=== PATIENT | female | born 1960 | race Caucasian/White ===

== ENCOUNTER 2021-06-10 06:15 | Outpatient (REF) | payer BC, OTHER, SELFPAY ==
[2021-06-10 12:12] LABS: Alanine Aminotransferase 20 U/L (0-31); Anion Gap 13 (12-20); Aspartate Amino Transferase 20 U/L (5-31); Blood Urea Nitrogen 14 mg/dL (9-16); Calcium 9.1 mg/dL (8.4-10.2); Carbon Dioxide 27 mmol/L (22-29); Chloride 106 mmol/L (96-108); Cholesterol 181 mg/dL; Estimated Glomerular Filt Rate > 60; Glucose Fasting 86 mg/dL (60-99); HDL Cholesterol 45 mg/dL; LDL Cholesterol Calculated 113 mg/dl; Sodium 142 mmol/L (135-145); Triglycerides 117 mg/dL
[2021-06-10 12:15] LABS: Vitamin D 25-OH Total 41.8 ng/mL (>30)
== END 2021-06-10 06:16 | disposition home or self-care (01) ==
LOC: HO.HMGCLDS 06:15
PROVIDERS: PCP Internal Medicine; Visit Provider Internal Medicine
DX: Z00.00 Encounter for general adult medical examination without abnormal findings (principal); E66.9 Obesity, unspecified; I10 Essential (primary) hypertension; E78.5 Hyperlipidemia, unspecified; Z78.0 Asymptomatic menopausal state
CPT/HCPCS: 36415; 80048; 80061; 82306; 84450; 84460

== ENCOUNTER → 2021-06-15 15:46 | Outpatient (BNVA) | payer BC, OTHER, SELFPAY | PROVIDERS: Referring Provider Internal Medicine; Visit Provider Nurse Practitioner Family ==

== ENCOUNTER 2021-08-05 09:06 | Day surgery (SDC) | payer BC, OTHER, SELFPAY ==
--- NOTE | 2021-08-04 09:03 | HO.ANESPROP2 ---
Documented by User: Madison Go NP 08/04/21 09:04 HPI - Anesthesia Eval Consult details Narrative: 61yo F for Colonoscopy PMFSH Active Problems Active Problems: All Active Problems (Updated 04/15/21 @ 10:44 by Annika More MD) Colon cancer screening (Acute) Dyslipidemia (Acute) Essential hypertension (Acute) Adult general medical exam (Acute) Obesity (BMI 30.0-34.9) (Acute) Past Medical History Medical History Adult general medical exam Colon cancer screening Dyslipidemia Essential hypertension Obesity (BMI 30.0-34.9) Surgical History Surgical History Hx of section Hx of colonoscopy Social History Social History Housing: House Alcohol intake: current Patient Tobacco Use Status: Never used Tobacco e-Cigarette/Vaping Use: Never Used Second Hand Smoke Exposure: No service: No Current occupational status: employed Meds Allergies Allergy/AdvReac Type Severity Reaction Status Date / Time bees Allergy Severe severe Uncoded 08/01/21 14:16 pain and swelling over bite (yellow Jacket) Home Medications Medication Instructions Recorded Confirmed Last Taken Type amlodipine 5 mg tablet 5 mg PO DAILY 04/15/21 08/01/21 Unknown History Exam Exam Date and Time: August 04, 2021 09 Pertinent Lab Results Pertinent Lab Results: Laboratory Tests 11/25/18 06/10/21 11:35 06:21 WBC 7.2 Hgb 12.8 Hct 38.3 Plt Count 277 Sodium 142 Potassium 4.0 Chloride 106 Carbon Dioxide 27 BUN 14 Creatinine 0.81 Assessment and Plan Assessment Anesthesia Assessment: Chart Reviewed Documented by User: Tila Fuchs MD 08/05/21 08:58 PMFSH Past Medical History Medical History Adult general medical exam Colon cancer screening Dyslipidemia Essential hypertension Obesity (BMI 30.0-34.9) Family History Family history of problems with anesthesia: No Surgical History Surgical History Hx of section Hx of colonoscopy History of Problems with Anesthesia: No Social History Social History Housing: House Alcohol intake: current Patient Tobacco Use Status: Never used Tobacco e-Cigarette/Vaping Use: Never Used Second Hand Smoke Exposure: No service: No Current occupational status: employed Meds Allergies Allergy/AdvReac Type Severity Reaction Status Date / Time bees Allergy Severe severe Uncoded 08/01/21 14:16 pain and swelling over bite (yellow Jacket) Home Medications Medication Instructions Recorded Confirmed Last Taken Type amlodipine 5 mg tablet 5 mg PO DAILY 04/15/21 08/01/21 Unknown History Exam Airway Mallampati Class: II TM Dist: >3cm Neck ROM: Full Assessment and Plan Assessment Anesthesia Assessment: Anesthesia Plan Discussed Final Anesthetic Review Family History of Problems with Anesthesia: No History of Problems with Anesthesia: No NPO: Yes ASA Class: II Final Preanesthetic Review: No Changes in Pt Med Stat, Meds/Allgs Chart Reviewed, Consent Obtained/Reviewed and Anes Risks/Benef Reviewed Patient Risk: Low Procedure Risk: Intermediate Assessment/Block/Sedation in SS: Assess/Block/Sedation-SS Anesthetic Plan Anesthetic Plan: MAC: Disposition: Standard PACU
[2021-08-05 09:14] VITALS: BMI 33.6
[2021-08-05 09:24] VITALS: BP 161/103; PULSE 85; RESP 18; TEMP 37.1; O2SAT 99
--- NOTE | 2021-08-05 09:35 | MHC.SHP ---
Pre-Procedural Eval Section A Date of Service: 08/05/21 Section B Chief Complaint: Screening Details of Present Illness: Colon cancer screening Relevant Family History (Specify if Yes): No Relevant Social History: None Present Medications: see Short Stay Collaborative assessment Medical History: Significant History (Adult general medical exam Colon cancer screening Dyslipidemia Essential hypertension Obesity (BMI 30.0-34.9)) Allergies: Allergies Allergy/AdvReac Type Severity Reaction Status Date / Time bees Allergy Severe severe Uncoded 08/01/21 14:16 pain and swelling over bite (yellow Jacket) Review of Systems Sugical H&P ROS: Negative: Constitution, Cardiovascular, Respiratory and Gastrointestinal Exam Surgical H&P Exam: Normal: Heart, Normal: Lungs and Normal: Extremities Plan Diagnosis/Plan: Unchanged I have reviewed the history and physical and performed a pertinent physical examination on my patient. No changes have occurred unless specified.
[2021-08-05] MEDS: Lactated Ringers 1,000 ML 100 ML IVCONT (09:44)
--- NOTE | 2021-08-05 09:48 | PM.OP ---
Brief Operative Note Date of Service: 08/05/21 Pre-op diagnosis: Colon cancer screening Post-op diagnosis: other (Colon polyp, diverticulosis, hemorrhoids) Procedure: COLONOSCOPY TILL CECUM WITH BIOPSIES Consent: Indications for the procedure and potential complications of bleeding, perforation, reaction to medications and missed diagnosis were discussed with the patient and informed consent was obtained. Instrument: Olympus PCF H 190 L variable stiffness pediatric colonoscope Monitoring: Vital signs and clinical assessment, intermittent blood pressure monitoring, continuous EKG monitoring, Pulse oximetry and Carbon Dioxide monitoring were done throughout the procedure. Colon withdrawl time was 15 minutes. Procedure: The patient was placed in the left lateral decubitis position and pre-procedure medications were administered. After a digital rectal examination of the ano-rectum, the video colonoscope was inserted into the rectum and advanced through the colon to the cecum. The colonoscope was slowly withdrawn in a retrograde panoramic fashion and the colon mucosa was carefully examined including a retroflexed view of the rectum. Findings and interventions are described below. Procedure Difficulty: Without difficulty Findings: Terminal Ileum: Not evaluated Cecum: Normal Ascending Colon: Normal Transverse Colon: A 6-7 mm sessile polyp removed with a cold bx. Descending Colon: Normal Sigmoid Colon: Moderate diverticulosis Rectum: Normal Ano-rectum: Moderate internal hemorrhoids Colon preparation: Good after some irrigation Impression and Post Procedure Diagnosis: Colonoscopy Findings: One small polyp removed Moderate diverticulosis seen in the sigmoid colon Moderate hemorrhoids on retroflexed exam. Plan: Await pathology results Patient has an appointment on 08/19/21 in the [facility] with Penny Mccloud FNP-BC . Repeat Colonoscopy interval based on path results - in 5 years if polyps are adenomatous and 10 years if polyps are hyperplastic. Above findings were reviewed with the patient and colon polyps and diverticulosis handouts were given in the discharge area Surgeon: Corey Madrigal MD Anesthesia: MAC (Castro Drake CRNA) Was an Tying Machine Operator Lumber used for this Procedure?: Yes Tying Machine Operator Lumber: Earle Sheehan Estimated blood loss (mL): 0 Pathology: other (A- TRANSVERSE COLON POLYP) Condition: stable Disposition: PACU
--- NOTE | 2021-08-05 10:17 | P.OP_ITS ---
Operative Note Operative Note Date of Service: 08/05/21 Narrative: Pre-op diagnosis:?Colon cancer screening Post-op diagnosis:?other (Colon polyp, diverticulosis, hemorrhoids) Procedure:? COLONOSCOPY TILL CECUM WITH BIOPSIES Consent: Indications for the procedure and potential complications of bleeding, perforation, reaction to medications and missed diagnosis were discussed with the patient and informed consent was obtained. Instrument: Olympus PCF H 190 L variable stiffness pediatric colonoscope Monitoring: Vital signs and clinical assessment, intermittent blood pressure monitoring, continuous EKG monitoring, Pulse oximetry and Carbon Dioxide monitoring were done throughout the procedure. Colon withdrawl time was 15 minutes. Procedure: The patient was placed in the left lateral decubitis position and pre-procedure medications were administered. After a digital rectal examination of the ano-rectum, the video colonoscope was inserted into the rectum and advanced through the colon to the cecum. The colonoscope was slowly withdrawn in a retrograde panoramic fashion and the colon mucosa was carefully examined including a retroflexed view of the rectum. Findings and interventions are described below. Procedure Difficulty: Without difficulty Findings: Terminal Ileum: Not evaluated Cecum:? Normal Ascending Colon:? Normal Transverse Colon:? A 6-7 mm sessile polyp removed with a cold bx. Descending Colon:? Normal Sigmoid Colon:? Moderate diverticulosis Rectum:? Normal Ano-rectum:? Moderate internal hemorrhoids Colon preparation:? Good after some irrigation Impression and Post Procedure Diagnosis: Colonoscopy Findings: One small polyp removed Moderate diverticulosis seen in the sigmoid colon Moderate hemorrhoids on retroflexed exam. Plan: Await pathology results Patient has an appointment on 08/19/21 in the GI Clinic with ? Penny Mccloud, [facility] . Repeat Colonoscopy interval based on path results - in 5 years if polyps are adenomatous and 10 years if polyps are hyperplastic. Above findings were reviewed with the patient and colon polyps and diverticulosis handouts were given in the discharge area Surgeon:?Corey Madrigal MD Anesthesia:?MAC (Castro Drake CRNA) Was an Utilities Equipment Repairer used for this Procedure?:?Yes Utilities Equipment Repairer:?Earle Sheehan Estimated blood loss (mL):?0 Pathology:?other (A- TRANSVERSE COLON POLYP) Condition:?stable Disposition:?PACU
[2021-08-05 10:20] VITALS: BP 123/75; PULSE 74; RESP 17; TEMP 36.3; O2SAT 99
[2021-08-05 10:35] VITALS: BP 132/91; PULSE 65; RESP 18; TEMP 36.3; O2SAT 99
== END 2021-08-05 11:01 | disposition home or self-care (01) ==
PROVIDERS: PCP Internal Medicine; Visit Provider Internal Medicine Gastroenterology
PROC: 0DJD8ZZ Inspection of Lower Intestinal Tract, Via Natural or Artificial Opening Endoscopic (ICD-10-PCS; CPT 45378; principal; 2021-08-05 10:00)
DX: Z12.11 Encounter for screening for malignant neoplasm of colon (principal); K63.5 Polyp of colon; K57.30 Diverticulosis of large intestine without perforation or abscess without bleeding; K64.8 Other hemorrhoids; I10 Essential (primary) hypertension; E78.5 Hyperlipidemia, unspecified
CPT/HCPCS: 45380; 88305

== ENCOUNTER → 2021-08-19 08:59 | Outpatient (BNVA) | payer BC, OTHER, SELFPAY | PROVIDERS: PCP Internal Medicine; Referring Provider Internal Medicine; Visit Provider Nurse Practitioner Family ==

== ENCOUNTER 2022-04-21 10:10 | Outpatient (REF) | payer BC, OTHER, SELFPAY ==
[2022-04-21 11:12] LABS: MANUAL DIFF FLAG NO
[2022-04-21 11:19] LABS: Basophils Percent Auto 0.3 % (0-2); Eosinophils Absolute Auto 0.1 X10*3/uL (0.0-0.4); Eosinophils Percent Auto 1.4 % (0-4); Hemoglobin 13.1 g/dl (12.0-16.0); Imm Gran Abs Auto 0.03 X10*3/uL (0.00-0.03); Imm Gran Pct Auto 0.4 % (0.0-0.4); Lymphocytes Absolute Auto 3.7 X10*3/uL (1.2-4.9); Lymphocytes Percent Auto 46.7 % (20-40); Mean Corpuscular Hemoglobin 26.8 pg (27.0-33.0); Mean Corpuscular Volume 83.8 fL (80.0-98.0); Mean Platelet Volume 9.5 fL (9.4-12.3); Monocytes Absolute Auto 0.6 X10*3/uL (0.1-1.2); Neutrophils Absolute Auto 3.5 x10*3/uL (2.0-8.3); Neutrophils Percent Auto 43.2 % (45-73); Platelet Count 325 X10*3/uL (160-400); Red Blood Count 4.89 X10*6/uL (4.20-5.50); Red Cell Distribution Width 14.8 % (11.0-16.0)
[2022-04-21 11:50] LABS: Alanine Aminotransferase 29 U/L (0-31); Anion Gap 14 (12-20); Aspartate Amino Transferase 24 U/L (5-31); Blood Urea Nitrogen 15 mg/dL (9-16); Calcium 9.3 mg/dL (8.4-10.2); Carbon Dioxide 26 mmol/L (22-29); Chloride 105 mmol/L (96-108); Cholesterol 212 mg/dL; Estimated Glomerular Filt Rate > 60; Glucose Fasting 96 mg/dL (60-99); HDL Cholesterol 50 mg/dL; LDL Cholesterol Calculated 143 mg/dl; Potassium 4.2 mmol/L (3.3-5.1); Sodium 141 mmol/L (135-145); Triglycerides 95 mg/dL
[2022-04-21 12:01] LABS: Vitamin D 25-OH Total 35.7 ng/mL (>30)
== END 2022-04-21 10:11 | disposition home or self-care (01) ==
LOC: HO.HMGCLDS 10:10
PROVIDERS: Visit Provider Internal Medicine
DX: Z00.00 Encounter for general adult medical examination without abnormal findings (principal); I10 Essential (primary) hypertension; E66.9 Obesity, unspecified; E78.5 Hyperlipidemia, unspecified; N95.9 Unspecified menopausal and perimenopausal disorder
CPT/HCPCS: 36415; 80048; 80061; 82306; 84450; 84460; 85025

== ENCOUNTER 2022-05-26 09:53 | Outpatient (REF) | payer BC, OTHER, SELFPAY ==
[2022-05-26 12:10] LABS: Alanine Aminotransferase 17 U/L (0-31); Albumin Level 4.5 g/dL (3.5-5.0); Alkaline Phosphatase 93 U/L (39-117); Anion Gap 14 (12-20); Aspartate Amino Transferase 19 U/L (5-31); Bilirubin Total 0.5 mg/dL (0.0-1.0); Blood Urea Nitrogen 14 mg/dL (9-16); Calcium 9.3 mg/dL (8.4-10.2); Carbon Dioxide 27 mmol/L (22-29); Chloride 104 mmol/L (96-108); Estimated Glomerular Filt Rate > 60; Glucose Random 97 mg/dL (60-115); Potassium 4.4 mmol/L (3.3-5.1); Sodium 141 mmol/L (135-145); Total Protein 8.1 g/dL (6.5-8.0)
[2022-05-26 13:59] LABS: Creatinine Urine 211.42 mg/dL; Protein/Creatinine Ratio, Ur 0.09 (<0.2); Total Protein Urine Random 19 mg/dL (<12)
== END 2022-05-26 09:54 | disposition home or self-care (01) ==
LOC: HO.HMGCLDS 09:53
PROVIDERS: PCP Internal Medicine; Visit Provider Internal Medicine Hypertension Specialist
DX: I10 Essential (primary) hypertension (principal)
CPT/HCPCS: 36415; 80053; 84156

== ENCOUNTER 2023-04-13 12:43 | Outpatient (REF) | payer BC, SELFPAY ==
[2023-04-13 14:11] LABS: Appearance Urine Cloudy; Color Urine Yellow; Glucose Urine UA Negative (Negative); Leukocyte Esterase Urine Large (3+) (Negative); Nitrite Urine Negative (Negative); Specific Gravity - Urine 1.025 (1.005-1.025); UMIC TRIGGER UA YES; Urine Blood Moderate (2+) (Negative); Urine Ketones Trace mg/dL (Negative); Urine Protein Trace mg/dL (Neg-Trace)
[2023-04-13 14:17] LABS: Bacteria Urine 1+ (None Seen); Hyaline Casts Urine 0-2 /LPF (0-2); RBC Urine >20 /HPF (0-2); WBC Urine >50 /HPF (0-5)
[2023-04-13 16:01] LABS: Anion Gap 12 (12-20); Blood Urea Nitrogen 12 mg/dL (9-16); Carbon Dioxide 28 mmol/L (22-29); Chloride 104 mmol/L (96-108); Estimated Glomerular Filt Rate > 60; Potassium 3.7 mmol/L (3.3-5.1); Sodium 140 mmol/L (135-145)
== END 2023-04-13 12:44 | disposition home or self-care (01) ==
LOC: HO.HMGCLDS 12:43
PROVIDERS: PCP Internal Medicine; Visit Provider Internal Medicine Hypertension Specialist
DX: I10 Essential (primary) hypertension (principal)
CPT/HCPCS: 36415; 80051; 81001; 82310; 82565; 84520

== ENCOUNTER 2023-04-20 09:07 | Outpatient (REF) | payer BC, SELFPAY | END 2023-04-20 09:08 | disposition home or self-care (01) | LOC: HO.LAB 09:07 | PROVIDERS: Visit Provider Internal Medicine | DX: Z13.89 Encounter for screening for other disorder (principal) ==

== ENCOUNTER 2023-04-20 09:17 | Outpatient (REF) | payer BC, SELFPAY ==
[2023-04-20 11:34] LABS: Urine Cytology See Pathology rpt
[2023-04-20 11:43] LABS: Appearance Urine Clear; Color Urine Yellow; Glucose Urine UA Negative (Negative); Leukocyte Esterase Urine Small (1+) (Negative); Nitrite Urine Negative (Negative); PH 5.5 (5.0-9.0); UMIC TRIGGER UACC YES; Urine Blood Trace (Negative); Urine Ketones Negative (Negative); Urine Protein Negative (Neg-Trace)
[2023-04-20 11:47] LABS: Bacteria Urine None Seen (None Seen); Hyaline Casts Urine 0-2 /LPF (0-2); Squamous Epithelial Cell Urine 0-2 /HPF (0-2); UACC Culture Trigger YES
[2023-04-20 12:34] LABS: Cholesterol 186 mg/dL; Glucose Fasting 108 mg/dL (60-99); HDL Cholesterol 47 mg/dL; LDL Cholesterol Calculated 118 mg/dl; Triglycerides 105 mg/dL
== END 2023-04-20 09:18 | disposition home or self-care (01) ==
LOC: HO.HMGCLDS 09:17
PROVIDERS: PCP Internal Medicine; Visit Provider Internal Medicine
DX: Z00.01 Encounter for general adult medical examination with abnormal findings (principal); I10 Essential (primary) hypertension; R31.29 Other microscopic hematuria; E78.5 Hyperlipidemia, unspecified
CPT/HCPCS: 36415; 80061; 81001; 82947; 87086; 88112

== ENCOUNTER 2023-08-14 10:19 | Outpatient (AMB) | payer BC, SELFPAY ==
[2023-08-14 11:11] VITALS: BP 136/80; PULSE 104; O2SAT 97; BMI 34.8
--- NOTE | 2023-08-14 11:11 | MHC.PC.OV ---
Vital Signs 08/14/23 11:11 Height 5 ft 3 in Weight 196 lb 4 oz BMI 34.8 BP 136/80 Blood Pressure Location Lt brachial Position Sitting Pulse 104 H Pulse Source Pulse Oximeter Pulse Oximetry (%) 97 Oxygen Delivery Method Room Air Intake Visit Reasons: ? kidney stone, left flank pain Intake Note: pt is here for left flank pain that comes and goes denies any pain with urination and she does not have any pain right now no blood in the urine pt does frequency and urgency but she has been drinking 96 oz water a day Allergies bees Allergy (Severe, Uncoded 08/14/23 14:51) severe pain and swelling over bite (yellow Jacket) Medication List - Last Reconciled 08/14/23 by Annika More MD amlodipine 5 mg PO DAILY lactobacillus combo no.11 (Probiotic) 1 cap PO DAILY multivitamin 1 tab PO DAILY spironolactone 25 mg PO DAILY Tobacco use date assessed: 04/20/23 HPI ? kidney stone, left flank pain HPI Details 63-year-old lady here today complaining of intermittent episode of sharp stabbing pain in left lower abdomen and flank, which started approximately a week ago comes and goes, improved a little bit after drinking plenty of water at least 16 oz every 4 hours. Denies any urinary symptoms. Has history of left kidney stone in the past status post lithotripsy in 2012 [facility] Medical History History of nephrolithiasis Right shoulder pain Annual visit for general adult medical examination with abnormal findings Microhematuria Dyslipidemia Essential hypertension Surgical History Hx of section Hx of colonoscopy Social History Housing: House Alcohol intake: current Patient Tobacco Use Status: Never used Tobacco e-Cigarette/Vaping Use: Never Used Second Hand Smoke Exposure: No service: No Current occupational status: employed Cognitive needs: No Hearing needs: No Vision needs: Yes Questionnaire Thrive Questionnaire Date Thrive assessed: 04/20/23 PRATIK-7 AMB Questionnaire PRATIK-7 Date PRATIK - 7 assessed: 04/20/23 Source: Developed by Drs. Augie Estrada, Joanne Bustamante, Reji Monzon and colleagues, with an educational zonia from [employer]. Review of Systems Const All systems reviewed & are unremarkable except as noted in HPI and below Physical exam (Primary Care) Vital Signs: Last Vital Signs Pulse 104 H 08/14/23 11:11 BP 136/80 08/14/23 11:11 Pulse Ox 97 08/14/23 11:11 Oxygen Delivery Method Room Air 08/14/23 11:11 BMI result Body Mass Index 34.8 Tobacco/Smoking Status: Tobacco use Status Tobacco use date assessed 04/20/23 08/14/23 11:12 Patient Tobacco Use Status Never used Tobacco 08/14/23 11:12 e-Cigarette/Vaping Use Never Used 08/14/23 11:12 Thrive Assessment: Date of Thrive Assessment Date Thrive assessed 04/20/23 08/14/23 11:12 Const Other: Alert oriented x3, no acute distress noted ambulatory normal gait GI Palpation (GI): Soft to palpation, nontender, no guarding and no masses General: Yes no CVA tenderness Back/Spine/Pelvis Back: no CVA tenderness Results AMB Urinalysis, Automated UA Leukoctes 0 Sola/uL Last Edit by Farzana Hollis CMA on 08/14/23 11:21 UA Nitrite Negative Last Edit by Farzana Hollis CMA on 08/14/23 11:21 UA Urobilinogen 0.2 mg/dL Last Edit by Farzana Hollis CMA on 08/14/23 11:21 UA Protein 0 mg/dL Last Edit by Farzana Hollis CMA on 08/14/23 11:21 UA pH 6.0 Last Edit by Farzana Hollis CMA on 08/14/23 11:21 UA Blood 80 Demond/uL Last Edit by Farzana Hollis CMA on 08/14/23 11:21 UA Specific [place] 1.010 Last Edit by Farzana Hollis CMA on 08/14/23 11:21 UA Ketone Negative Last Edit by Farzana Hollis CMA on 08/14/23 11:21 UA Bilirubin 0 mg/dL Last Edit by Farzana Hollis CMA on 08/14/23 11:21 UA Glucose 0 mg/dL Last Edit by Farzana Hollis CMA on 08/14/23 11:21 Results Reviewed Results Reviewed: Laboratory Last Values Urine pH (Auto) 6.0 08/14/23 11:18 Specific [place] (Auto) 1.010 08/14/23 11:18 Urine Protein (Auto) 0 mg/dL 08/14/23 11:18 Glucose (UA)(Auto) 0 mg/dL 08/14/23 11:18 Urine Ketones (Auto) Negative 08/14/23 11:18 Urine Blood (Auto) 80 Demond/uL 08/14/23 11:18 Urine Nitrite (Auto) Negative 08/14/23 11:18 Urine Bilirubin (Auto) 0 mg/dL 08/14/23 11:18 Urine Urobilinogen (Auto) 0.2 mg/dL 08/14/23 11:18 Leukocyte Esterase (Auto) 0 Sola/uL 08/14/23 11:18 Assessment and Plan Assessment & Plan (1) Acute left flank pain: Code(s): R10.9 - Unspecified abdominal pain Plan: Urinalysis showed presence of microscopic hematuria, no evidence of UTI. Ordered the left renal ultrasound. Likely kidney stone Orders: Orders AMB Urinalysis Automated Today Z13.9 - Encounter for screening, unspecified US renal LT Today R10.9 - Unspecified abdominal pain, Z87.442 - Personal history of urinary calculi Coding Level of Care Code Est Pt Level 3 (95257) Diagnoses Acute left flank pain R10.9
== END 2023-08-14 11:55 | disposition home or self-care (01) ==
PROVIDERS: PCP Internal Medicine; Visit Provider Internal Medicine
DX: Z13.9 Encounter for screening, unspecified (principal); R10.9 Unspecified abdominal pain
CPT/HCPCS: 81003; 99213

== ENCOUNTER 2023-08-14 12:00 | Outpatient (REF) | payer BC, SELFPAY ==
--- NOTE | ~2023-08-14 | US_ITS ---
ULTRASOUND RENAL LEFT CLINICAL INDICATION: Acute left flank pain TECHNIQUE: Real-time imaging of the left kidney and proximal left ureter FINDINGS: LEFT KIDNEY: The left kidney measures 10.9 x 5.7 x 6.2 cm. It demonstrates normal echogenicity and cortical thickness. There is moderate left hydronephrosis. 0.6 x 0.5 cm cm obstructing calculus is seen in the proximal ureter. Brief scanning of the bladder demonstrates was performed. No left ureteral jet was seen. US/US renal LT IMPRESSION: Moderate left hydronephrosis with 0.6 cm obstructing calculus in the proximal ureter.
== END 2023-08-14 12:01 | disposition home or self-care (01) ==
LOC: HO.HMGCX 12:00
PROVIDERS: PCP Internal Medicine; Visit Provider Internal Medicine
DX: R10.9 Unspecified abdominal pain (principal); Z87.442 Personal history of urinary calculi
CPT/HCPCS: 76775

== ENCOUNTER 2023-08-29 14:57 | Outpatient (AMB) | payer BC, SELFPAY ==
--- NOTE | 2023-08-29 14:59 | HO.NEPHOV_ITS ---
Intake Vital Signs 08/29/23 15:07 Height 5 ft 3 in Weight 193 lb 2 oz BMI 34.2 BP 140/70 H Blood Pressure Location Lt popliteal Position Sitting Pulse Source Pulse Oximeter Pulse Oximetry (%) 93 Oxygen Delivery Method Room Air Intake Visit Reasons: HTN/ ? kidney stones Change Management Expert Required: No Allergies bees Allergy (Severe, Uncoded 08/14/23 14:51) severe pain and swelling over bite (yellow Jacket) HPI HPI Comments History of Present Illness Details Steffany is a pleasant middle-aged woman with a history of hypertension. She has been monitoring her blood pressure at home. Overall blood pressure seems to be well controlled. Recently she developed severe left flank pain which lasted for few days. She visited the ER and ultrasound showed a left ureteral calculus with hydronephrosis. She has been referred to Urology. Her next appointment is on September 12. At present she does not have any pain No urinary symptoms She has lost 6-10 lb Assessment & Plan Assessment & Plan (1) Kidney stone on left side: Code(s): N20.0 - Calculus of kidney (2) Essential hypertension: Code(s): I10 - Essential (primary) hypertension (3) Hydronephrosis, left: Code(s): N13.30 - Unspecified hydronephrosis Plan Steffany has hypertension. Overall blood pressure seems well controlled. She should stay on a low-sodium diet. Encouraged to continue monitoring of blood pressure at home. With further weight loss we might be able to taper and discontinue the antihypertensive. Left ureteral calculus with hydronephrosis. Her urology appointment is on September 12. I will obtain a repeat ultrasound A encouraged her stay on a low-sodium diet Increase p.o. fluid intake to maintain a urine output of at least 2 L per 24 hours Order 24 hour urine collection for stone studies. Orders: Orders Sodium, 24Hr Urine Group 08/29/23 N13.30 - Unspecified hydronephrosis, N20.0 - Calculus of kidney Calcium, 24 Hr Ur 08/29/23 N13.30 - Unspecified hydronephrosis, N20.0 - Calculus of kidney Creatinine, 24 Hr Group 08/29/23 N13.30 - Unspecified hydronephrosis, N20.0 - Calculus of kidney Blood Urea Nitrogen 08/29/23 N13.30 - Unspecified hydronephrosis, N20.0 - Calculus of kidney US renal BI 08/29/23 N13.30 - Unspecified hydronephrosis, N20.0 - Calculus of kidney Uric Acid, 24Hr Urine Group 08/29/23 N13.30 - Unspecified hydronephrosis, N20.0 - Calculus of kidney Oxalate, 24 Hr 08/29/23 N13.30 - Unspecified hydronephrosis, N20.0 - Calculus of kidney Citric Acid 24hr Urine 08/29/23 N13.30 - Unspecified hydronephrosis, N20.0 - Calculus of kidney Electrolytes 08/29/23 N13.30 - Unspecified hydronephrosis, N20.0 - Calculus of kidney Creatinine 08/29/23 N13.30 - Unspecified hydronephrosis, N20.0 - Calculus of kidney Calcium 08/29/23 N13.30 - Unspecified hydronephrosis, N20.0 - Calculus of kidney Coding Level of Care Code Est Pt Level 4 (84968) Diagnoses Kidney stone on left side N20.0 Essential hypertension I10 Hydronephrosis, left N13.30 PFSH Medical History (Updated 08/14/23 @ 14:55 by Annika More MD) Kidney stone on left side Hydronephrosis, left History of nephrolithiasis Right shoulder pain Annual visit for general adult medical examination with abnormal findings Microhematuria Dyslipidemia Essential hypertension Surgical History Hx of section Hx of colonoscopy Social History Housing: House Alcohol intake: current Patient Tobacco Use Status: Never used Tobacco e-Cigarette/Vaping Use: Never Used Second Hand Smoke Exposure: No service: No Current occupational status: employed Cognitive needs: No Hearing needs: No Vision needs: Yes Results Reviewed Results Reviewed: Ultrasound on 08/14/2023 LEFT KIDNEY: The left kidney measures 10.9 x 5.7 x 6.2 cm. It demonstrates normal echogenicity and cortical thickness. There is moderate left hydronephrosis. 0.6 x 0.5 cm cm obstructing calculus is seen in the proximal ureter. Brief scanning of the bladder demonstrates was performed. No left ureteral jet was seen. US/US renal LT IMPRESSION: Moderate left hydronephrosis with 0.6 cm obstructing calculus in the proximal ureter.
[2023-08-29 15:07] VITALS: BP 140/70; O2SAT 93; BMI 34.2
== END 2023-08-29 15:28 | disposition home or self-care (01) ==
PROVIDERS: PCP Internal Medicine; Visit Provider Internal Medicine Hypertension Specialist
DX: N20.0 Calculus of kidney (principal); I10 Essential (primary) hypertension; N13.30 Unspecified hydronephrosis
CPT/HCPCS: 99214

== ENCOUNTER → 2023-08-29 14:57 | Outpatient (BNVA) | payer BC, SELFPAY | PROVIDERS: PCP Internal Medicine; Visit Provider Internal Medicine Hypertension Specialist ==

== ENCOUNTER 2023-09-03 10:01 | Outpatient (REF) | payer BC, SELFPAY ==
--- NOTE | ~2023-09-03 | US_ITS ---
EXAMINATION: US RETROPERITONEAL LIMITED (RENAL ONLY) CLINICAL INFORMATION: Calculus of kidney. COMPARISON: Ultrasound renal left 08/14/2023. Renal ultrasound 03/27/2014. TECHNIQUE: Real-time imaging of the kidneys. FINDINGS: RIGHT KIDNEY: 11.7 x 3.8 x 5.8 cm (SAG x AP x TRV). The kidney is normal in size, contour, and echogenicity. Renal cortical thickness is normal. No hydronephrosis. Hyperechoic lesion is seen in upper mid right kidney measuring 0.5 x 0.5 x 0.5 cm in size. Echogenic foci are seen in right upper renal pole measuring 0.3 x 0.3 x 0.4 cm in size. A larger cluster of echogenic foci is seen in mid right kidney measuring 0.7 x 0.9 x 0.8 cm. Right lower pole echogenic focus is seen measuring 0.5 x 0.2 x 0.4 cm in size. Additional smaller echogenic foci are present. LEFT KIDNEY: 10.8 x 4.7 x 5.2 cm (SAG x AP x TRV). The kidney is normal in size, contour, and echogenicity. Renal cortical thickness is normal. No focal parenchymal lesions. Echogenic foci are seen in left lower renal pole measuring 0.4 cm in diameter and 0.5 cm in diameter, mid left kidney measuring 0.4 cm in diameter. A cluster of echogenic foci is seen in the left ureteropelvic junction measuring 0.9 x 0.4 x 0.9 cm in size. Multiple additional echogenic foci are present in the left kidney. There is mild left renal pelviectasis. BLADDER: Bilateral ureteral jets are demonstrated. US/US renal BI IMPRESSION: 1. Bilateral numerous renal calculi are seen. 2. Mild left renal pelviectasis is present. Interval decrease in left hydronephrosis. 3. 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 4. Patent bilateral ureters are demonstrated.
== END 2023-09-03 10:02 | disposition home or self-care (01) ==
LOC: HO.HMGCX 10:01
PROVIDERS: PCP Internal Medicine; Visit Provider Internal Medicine Hypertension Specialist
DX: N20.0 Calculus of kidney (principal); N13.30 Unspecified hydronephrosis
CPT/HCPCS: 76775

== ENCOUNTER 2023-09-10 09:22 | Outpatient (REF) | payer BC, SELFPAY ==
[2023-09-10 11:42] LABS: Anion Gap 13 (12-20); Blood Urea Nitrogen 9 mg/dL (9-16); Calcium 9.4 mg/dL (8.4-10.2); Carbon Dioxide 27 mmol/L (22-29); Chloride 105 mmol/L (96-108); Estimated Glomerular Filt Rate > 60; Potassium 3.5 mmol/L (3.3-5.1); Sodium 141 mmol/L (135-145)
[2023-09-10 14:22] LABS: Creatinine, mg/dL 38.79; Creatinine, mg/dL 39.27
[2023-09-10 14:25] LABS: Creatinine, mg/dL 38.89
[2023-09-10 14:45] LABS: Creatinine, 24Hr Urine 1.2 G/Day (1.0-2.0); Total Volume 24 Hour Urine 2950 mL
[2023-09-10 14:46] LABS: Creatinine, 24Hr Urine 1.1 G/Day (1.0-2.0); Sodium 24 Hr Urine 106.2 mmol/Day (40-220); Total Volume 24 Hour Urine 2950 mL
[2023-09-10 14:48] LABS: Uric Acid, 24 Hr Urine 501.5 mg/Day (250-750)
[2023-09-12 22:44] LABS: Calcium, 24 Hr Urine 139 mg/24 h; Calcium/Creatinine Ratio 115 mg/g creat (30-275); Creatinine 24Hr Urine 1.21 g/24 h (0.50-2.15)
[2023-09-14 15:29] LABS: 24hr Urine Total Volume 2950 mL; Citric Acid, 24hr Urine 814 mg/24 h (100-1300); Citric Acid/Creat Ratio 24U 678 mg/g creat (180-1070); Creatinine, 24U 1.21 g/24 h (0.50-2.15)
[2023-09-14 15:33] LABS: Oxalic Acid 24 Urine 41.3 mg/24 h (3.6-38.0)
== END 2023-09-10 09:23 | disposition home or self-care (01) ==
LOC: HO.HMGCLDS 09:22
PROVIDERS: PCP Internal Medicine; Visit Provider Internal Medicine Hypertension Specialist
DX: N20.0 Calculus of kidney (principal); N13.30 Unspecified hydronephrosis
CPT/HCPCS: 36415; 80051; 82310; 82340; 82507; 82565; 82570; 83945; 84300; 84520; 84560

== ENCOUNTER 2023-09-12 11:29 | Outpatient (AMB) | payer BC, SELFPAY ==
--- NOTE | 2023-09-12 11:31 | A.OFFVIS_ITS ---
Intake Intake Visit Reasons: Calculus of kidney Intake Note: NEW Patient presents today to established treatment for Renal Calculus: Meds- None Allergies to Antibiotic- No Known Allergies Blood Thinner- None Fitness Leader Required: No Accompanied by: Self / Same As Patient Allergies bees Allergy (Severe, Uncoded 09/12/23 11:55) severe pain and swelling over bite (yellow Jacket) HPI HPI Comments History of Present Illness Details Linda is a 63-year-old female who presents today to the office to establish as a new patient for an evaluation of renal calculus. 09/12/2023--- The Patient states that about a month ago she had left flank pain. She admits that she was very busy the day prior, and did not consume much water on that day. She states that the pain did increase even after increasing her fluids. She states that she went to her PCP at that time and US of the of the left kidney was done on 08/14/23 which noted moderate hydronephrosis secondary to a 6 mm stone at the UPJ. She states that the pain on the left side did resolve with her increase in fluids intake. She had a follow-up with her plate glass installer a week ago who ordered a repeat US to reevaluate the kidneys. I have reviewed the FU renal US which showed multiple stones in both the kidneys and the hydronephrosis has resolved. I reviewed the lab data results from 09/10/2023 showed BUN was 9 and creatinine was 0.83. I have discussed diet modifications to decrease the risks of kidney stones by consuming adequate amount of fluids 2- 2.5 L daily, and low oxalate and low sodium diet. 09/12/2023: Evaluation today--UA--Blood: negative; protein: negative. 09/12/2023: Plan: There is a significant discrepancy in the 2 renal US's - I will check a Cat scan stone protocol to re evaluate. [facility] Medical History (Updated 09/12/23 @ 20:05 by Mayank Anderson MD) Kidney stone on left side Hydronephrosis, left History of nephrolithiasis Right shoulder pain Annual visit for general adult medical examination with abnormal findings Microhematuria Dyslipidemia Essential hypertension Surgical History Hx of section Hx of colonoscopy Social History Housing: House Alcohol intake: current Patient Tobacco Use Status: Never used Tobacco e-Cigarette/Vaping Use: Never Used Second Hand Smoke Exposure: No service: No Current occupational status: employed Cognitive needs: No Hearing needs: No Vision needs: Yes Review of Systems Const All systems reviewed & are unremarkable except as noted in HPI and below Reports no additional complaints Eyes Reports no additional complaints ENT Reports no additional complaints Card Denies dyspnea Resp Denies cough and Denies dyspnea GI Reports no additional complaints Reports no additional complaints Musc Reports no additional complaints Skin/Breast Denies rash and Denies unusual bruising Neuro Reports no additional complaints Psych Reports no additional complaints Endo Reports no additional complaints Aly/Lymph Reports no additional complaints Aller/Immun Reports no additional complaints Physical Exam Const General: cooperative, healthy appearing and no acute distress Orientation/consciousness: patient oriented x3 HEENT Head: Yes normal to inspection, Yes normocephalic and Yes atraumatic Eyes Conjunctivae: conjunctivae normal Neck Neck: Yes normal visual inspection and Yes trachea midline Chest Chest palpation & inspection: normal inspection of the chest Resp Effort & Inspection: normal respiratory effort Cardio Rate: regular rate GI Inspection: Yes normal to inspection Skin General skin exam: no rashes or lesions noted Neuro General: patient oriented x3 Extrem General: No edema Psych Appearance: grossly normal Results AMB Urinalysis, Automated UA Leukoctes 70 Sola/uL Last Edit by KAI Boone on 09/12/23 11:57 1+ Aaliyah Darden 09/12/23 11:57 UA Nitrite Negative Last Edit by KAI Boone on 09/12/23 11:57 UA Urobilinogen 0.2 mg/dL Last Edit by KAI Boone on 09/12/23 11:5 7 UA Protein 0 mg/dL Last Edit by KAI Boone on 09/12/23 11:57 UA pH 6.0 Last Edit by Aaliyah Darden A on 09/12/23 11:57 UA Blood 0 Demond/uL Last Edit by Aaliyah Darden Anderson on 09/12/23 11:57 UA Specific [place] 1.010 Last Edit by Aaliyah Darden A on 09/12/23 11: 57 UA Ketone Negative Last Edit by Aaliyah Darden A on 09/12/23 11:57 UA Bilirubin 0 mg/dL Last Edit by Aaliyah Darden A on 09/12/23 11:57 UA Glucose 0 mg/dL Last Edit by Aaliyah Darden Anderson on 09/12/23 11:57 Results Reviewed Results Reviewed: Laboratory Last Values Urine pH (Auto) 6.0 09/12/23 11:56 Specific [place] (Auto) 1.010 09/12/23 11:56 Urine Protein (Auto) 0 mg/dL 09/12/23 11:56 Glucose (UA)(Auto) 0 mg/dL 09/12/23 11:56 Urine Ketones (Auto) Negative 09/12/23 11:56 Urine Blood (Auto) 0 Demond/uL 09/12/23 11:56 Urine Nitrite (Auto) Negative 09/12/23 11:56 Urine Bilirubin (Auto) 0 mg/dL 09/12/23 11:56 Urine Urobilinogen (Auto) 0.2 mg/dL 09/12/23 11:56 Leukocyte Esterase (Auto) 70 Sola/uL 09/12/23 11:56 Date of Service: 09/03/23 EXAMINATION: US RETROPERITONEAL LIMITED (RENAL ONLY) CLINICAL INFORMATION: Calculus of kidney. COMPARISON: Ultrasound renal left 08/14/2023. Renal ultrasound 03/27/2014 FINDINGS: RIGHT KIDNEY: 11.7 x 3.8 x 5.8 cm (SAG x AP x TRV). The kidney is normal in size, contour, and echogenicity. Renal cortical thickness is normal. No hydronephrosis. Hyperechoic lesion is seen in upper mid right kidney measuring 0.5 x 0.5 x 0.5 cm in size. Echogenic foci are seen in right upper renal pole measuring 0.3 x 0.3 x 0.4 cm in size. A larger cluster of echogenic foci is seen in mid right kidney measuring 0.7 x 0.9 x 0.8 cm. Right lower pole echogenic focus is seen measuring 0.5 x 0.2 x 0.4 cm in size. Additional smaller echogenic foci are present. LEFT KIDNEY: 10.8 x 4.7 x 5.2 cm (SAG x AP x TRV). The kidney is normal in size, contour, and echogenicity. Renal cortical thickness is normal. No focal parenchymal lesions. Echogenic foci are seen in left lower renal pole measuring 0.4 cm in diameter and 0.5 cm in diameter, mid left kidney measuring 0.4 cm in diameter. A cluster of echogenic foci is seen in the left ureteropelvic junction measuring 0.9 x 0.4 x 0.9 cm in size. Multiple additional echogenic foci are present in the left kidney. There is mild left renal pelviectasis. BLADDER: Bilateral ureteral jets are demonstrated. IMPRESSION: 1. Bilateral numerous renal calculi are seen. 2. Mild left renal pelviectasis is present. Interval decrease in left hydronephrosis. 3. 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 4. Patent bilateral ureters are demonstrated. Date of Service: 08/14/23 ULTRASOUND RENAL LEFT CLINICAL INDICATION: Acute left flank pain FINDINGS: LEFT KIDNEY: The left kidney measures 10.9 x 5.7 x 6.2 cm. It demonstrates normal echogenicity and cortical thickness. There is moderate left hydronephrosis. 0.6 x 0.5 cm cm obstructing calculus is seen in the proximal ureter. Brief scanning of the bladder demonstrates was performed. No left ureteral jet was seen. IMPRESSION: Moderate left hydronephrosis with 0.6 cm obstructing calculus in the proximal ureter. Assessment & Plan Assessment & Plan (1) Hydronephrosis, left: Code(s): N13.30 - Unspecified hydronephrosis (2) Kidney stone on left side: Code(s): N20.0 - Calculus of kidney (3) Bilateral kidney stones: Code(s): N20.0 - Calculus of kidney Plan There is a significant discrepancy in the 2 renal US's - I will check a Cat scan stone protocol to re evaluate. Orders: Orders AMB Urinalysis Automated Today Z13.9 - Encounter for screening, unspecified Patient Instructions: The patient had an opportunity to ask questions regarding treatment plan. All questions were answered. Imaging, Laboratory studies and physical exam results were discussed and reviewed in detail. No major barriers to understanding were identified. The patient expressed understanding and agreement with the above treatment plan. The patient is aware they should contact our office by phone for worsening of th eir current condition or the appearance of new symptoms. Compliance is encouraged with any medications and followup testing that is ordered. It is a privilege to be allowed the opportunity to participate in the urologic care of your patient. If you have any questions or concerns regarding treatment for the above conditions please do not hesitate to contact me. The office telephone contact is [phone]. This note is constructed in part using voice recognition software. While every effort has been made to ensure accuracy invoicing specialist errors may have been included. Yours sincerely, Mayank Anderson MD Coding Level of Care Code New Pt Level 4 (08848) Diagnoses Hydronephrosis, left N13.30 Kidney stone on left side N20.0 Bilateral kidney stones N20.0
== END 2023-09-12 12:08 | disposition home or self-care (01) ==
PROVIDERS: PCP Internal Medicine; Visit Provider Urology
DX: N13.30 Unspecified hydronephrosis (principal); N20.0 Calculus of kidney; Z13.9 Encounter for screening, unspecified
CPT/HCPCS: 99204

== ENCOUNTER → 2023-09-12 11:29 | Outpatient (BNVA) | payer BC, SELFPAY | PROVIDERS: PCP Internal Medicine; Visit Provider Urology | DX: N20.0 Calculus of kidney (principal); N13.30 Unspecified hydronephrosis; R31.29 Other microscopic hematuria | CPT/HCPCS: 81003 ==

== ENCOUNTER 2023-10-30 10:43 | Outpatient (AMB) | payer BC, SELFPAY ==
[2023-10-30 10:45] VITALS: BP 136/88; PULSE 90; O2SAT 100; BMI 34.4
--- NOTE | 2023-10-30 10:45 | HO.NEPHOV ---
HPI HPI Comments History of Present Illness Details Steffany is a pleasant middle-aged woman with a history of hypertension. She has been monitoring her blood pressure at home. Overall blood pressure seems to be well controlled. Recently she developed severe left flank pain which lasted for few days. She visited the ER and ultrasound showed a left ureteral calculus with hydronephrosis. She has been referred to Urology. Her next appointment is on September 12. At present she does not have any pain No urinary symptoms She has lost 6-10 lb 10/30/2023. Overall the blood is doing well. Few weeks ago showed severe right-sided pain. The pain suddenly dropped from 100 down to 0. Since then she has had no issues. She underwent a renal ultrasonogram showed bilateral brain nephrolithiasis. No obstruction was noted. She is scheduled for a follow-up CT scan. [facility] Medical History Kidney stone on left side Hydronephrosis, left History of nephrolithiasis Right shoulder pain Annual visit for general adult medical examination with abnormal findings Microhematuria Dyslipidemia Essential hypertension Surgical History Hx of section Hx of colonoscopy Social History Housing: House Alcohol intake: current Patient Tobacco Use Status: Never used Tobacco e-Cigarette/Vaping Use: Never Used Second Hand Smoke Exposure: No service: No Current occupational status: employed Cognitive needs: No Hearing needs: No Vision needs: Yes Vital Signs 10/30/23 10:45 Height 5 ft 3 in Weight 194 lb BMI 34.4 BP 136/88 Blood Pressure Location Lt brachial Position Sitting Pulse 90 Pulse Source Pulse Oximeter Pulse Oximetry (%) 100 Oxygen Delivery Method Room Air Physical Exam Vital Signs: Last Vital Signs Pulse 90 10/30/23 10:45 BP 136/88 10/30/23 10:45 Pulse Ox 100 10/30/23 10:45 Oxygen Delivery Method Room Air 10/30/23 10:45 BMI result Body Mass Index 34.4 Const General: comfortable Nutritional Appearance: well nourished Orientation/consciousness: patient oriented x3 HEENT Head: No normal to inspection Mouth: moist mucous membranes Neck Neck: Yes supple and Yes no JVD Resp Auscultation: clear to auscultation bilaterally, no rales and rub present Cardio Jugular venous distension: no JVD Palpation: no palpable S3 and no palpable S4 Heart sounds: no rubs GI Palpation (GI): Soft to palpation and nontender Percussion: No Fluid wave present General: Yes no CVA tenderness Back/Spine/Pelvis Back: no CVA tenderness Skin General skin exam: no rashes or lesions noted Neuro General: patient oriented x3 Extrem General: Yes no pedal edema and No clubbing Assessment & Plan Assessment & Plan (1) Bilateral kidney stones: Code(s): N20.0 - Calculus of kidney (2) Kidney stone on left side: Code(s): N20.0 - Calculus of kidney (3) Essential hypertension: Code(s): I10 - Essential (primary) hypertension (4) Hydronephrosis, left: Code(s): N13.30 - Unspecified hydronephrosis Plan Steffany has hypertension. Overall blood pressure seems well controlled. She should stay on a low-sodium diet. Encouraged to continue monitoring of blood pressure at home. With further weight loss we might be able to taper and discontinue the antihypertensive. Left ureteral calculus with hydronephrosis. Repeat ultrasonogram showed bilateral renal stones without hydronephrosis. She is scheduled for a CT scan on November 09 Follow-up with Urology. 24 hour urine collection revealed a urine output of 2950 cc which is excellent. Sodium excretion is acceptable. She has mild hyperoxaluria. She admits to eating oxalate rich food including peanuts chocolates and blueberries Sharples. We discussed lowering oxalate intake. I have given a list of foods to avoid or to consume in moderation. She will recheck 24 urine collection in the next 3-4 months. Continue to stay on a low-sodium diet Keep p.o. fluid intake to maintain a urine output of at least 2 L per 24 hours Orders: Orders Sodium, 24Hr Urine Group 3 Months N20.0 - Calculus of kidney Citric Acid 24hr Urine 3 Months N20.0 - Calculus of kidney Creatinine, 24 Hr Group 3 Months N20.0 - Calculus of kidney Oxalate, 24 Hr 3 Months N20.0 - Calculus of kidney Coding Level of Care Code Est Pt Level 4 (96199) Diagnoses Bilateral kidney stones N20.0 Kidney stone on left side N20.0 Essential hypertension I10 Hydronephrosis, left N13.30 Results Reviewed Nephrology Results: Sodium 141 mmol/L (135-145) 09/10/23 Potassium 3.5 mmol/L (3.3-5.1) 09/10/23 Chloride 105 mmol/L (96-108) 09/10/23 Carbon Dioxide 27 mmol/L (22-29) 09/10/23 BUN 9 mg/dL (9-16) 09/10/23 Creatinine 0.83 mg/dL (0.5-1.4) 09/10/23 Calcium 9.4 mg/dL (8.4-10.2) 09/10/23 Urine Protein Negative mg/dL (Neg-Trace) 04/20/23 Renal US 09/03/23
== END 2023-10-30 11:14 | disposition home or self-care (01) ==
PROVIDERS: PCP Internal Medicine; Visit Provider Internal Medicine Hypertension Specialist
DX: N20.0 Calculus of kidney (principal); I10 Essential (primary) hypertension; N13.30 Unspecified hydronephrosis
CPT/HCPCS: 99214

== ENCOUNTER → 2023-10-30 10:43 | Outpatient (BNVA) | payer BC, SELFPAY | PROVIDERS: PCP Internal Medicine; Visit Provider Internal Medicine Hypertension Specialist ==

== ENCOUNTER 2023-11-09 14:24 | Outpatient (REF) | payer BC, SELFPAY ==
--- NOTE | ~2023-11-09 | CT_ITS ---
EXAMINATION: CT ABDOMEN AND PELVIS WITHOUT CONTRAST CLINICAL INFORMATION: Renal calculus COMPARISON: Ultrasound dated 09/03/2023 TECHNIQUE: Multidetector volumetric imaging was performed from the superior aspect of the liver through the pubic symphysis. Sagittal and coronal reformatted images were obtained on the technologist's workstation. This CT examination was performed using dose optimization techniques as appropriate, variously including the following: *Automated exposure control *Adjustment of mA and/or kV according to patient size (this includes techniques or standardized protocols for targeted exams where dose is matched to indication/reason for exam; i.e. extremities or head) *Use of iterative reconstruction technique DLP: 509 mGy-cm FINDINGS: LUNG BASES: Unremarkable. ABDOMINAL AND PELVIC WALL: Unremarkable. LIVER AND BILIARY TREE: Unremarkable. GALLBLADDER: Unremarkable. PANCREAS: Unremarkable. SPLEEN: Unremarkable. ADRENAL GLANDS: Unremarkable. KIDNEYS AND URETERS: There is a proximal left ureteral 5 mm stone (4:273) with associated mild left hydronephrosis. Curvilinear calcification in the mid right renal parenchyma may reflect calcifications within a cyst, although lack of IV contrast limits evaluation. GASTROINTESTINAL TRACT: Unremarkable. VASCULAR: Unremarkable. LYMPH NODES/PERITONEUM: No lymphadenopathy. FREE FLUID: None. BLADDER: Unremarkable. PELVIC VISCERA: Unremarkable. OSSEOUS STRUCTURES: Unremarkable. CT/CT abdomen pelvis wo IV con IMPRESSION: * Proximal left ureteral 5 mm stone with associated mild left hydronephrosis. * Curvilinear calcification in the mid right renal parenchyma may reflect calcifications within a cyst, although lack of IV contrast limits evaluation.
== END 2023-11-09 14:25 | disposition home or self-care (01) ==
LOC: HO.CT 14:24
PROVIDERS: PCP Internal Medicine; Visit Provider Urology
DX: N20.0 Calculus of kidney (principal); N13.30 Unspecified hydronephrosis
CPT/HCPCS: 74176

== ENCOUNTER 2024-01-18 11:34 | Outpatient (AMB) | payer BC, SELFPAY ==
--- NOTE | 2024-01-18 12:02 | A.OFFVIS_ITS ---
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 I have reviewed the recent CT scan 11/09/23-- 5 mm left proximal ureteral stone with mild hydronephrosis. She thinks she passed the kidney stone. She is followed by Nephrology. Review of chart: 09/12/2023---Linda is a 63-year-old female who presents today to the office to establish as a new patient for an evaluation of renal calculus. The Patient states that about a month ago she had left flank pain. She admits that she was very busy the day prior, and did not consume much water on that day. She states that the pain did increase even after increasing her fluids. She states that she went to her PCP at that time and US of the of the left kidney was done on 08/14/23 which noted moderate hydronephrosis secondary to a 6 mm stone at the UPJ. She states that the pain on the left side did resolve with her increase in fluids intake. She had a follow-up with her charge weigher a week ago who ordered a repeat US to reevaluate the kidneys. I have reviewed the FU renal US which showed multiple stones in both the kidneys and the hydronephrosis has resolved. I reviewed the lab data results from 09/10/2023 showed BUN was 9 and creatinine was 0.83. I have discussed diet modifications to decrease the risks of kidney stones by consuming adequate amount of fluids 2- 2.5 L daily, and low oxalate and low sodium diet. Evaluation today--UA--Blood: negative; protein: negative. Plan--There is a significant discrepancy in the 2 renal US's - I will check a Cat scan stone protocol to re evaluate. 01/18/24: Will continue to monitor. Renal US in 4 months. Vit B6 100 mg daily. PFSH Medical History Kidney stone on left side Hydronephrosis, left History of nephrolithiasis Right shoulder pain Annual visit for general adult medical examination with abnormal findings Microhematuria Dyslipidemia Essential hypertension Surgical History Hx of section Hx of colonoscopy Social History Housing: House Alcohol intake: current Patient Tobacco Use Status: Never used Tobacco e-Cigarette/Vaping Use: Never Used Second Hand Smoke Exposure: No service: No Current occupational status: employed Cognitive needs: No Hearing needs: No Vision needs: Yes Review of Systems Const All systems reviewed & are unremarkable except as noted in HPI and below Reports no additional complaints Eyes Reports no additional complaints ENT Reports no additional complaints Card Reports no additional complaints Resp Reports no additional complaints GI Reports no additional complaints Reports as per HPI Musc Reports no additional complaints Skin/Breast Reports system reviewed and no additional complaints, except as documented Neuro Reports no additional complaints Psych Reports no additional complaints Endo Reports no additional complaints Aly/Lymph Reports no additional complaints Aller/Immun Reports no additional complaints Results AMB Urinalysis, Automated UA Leukoctes 0 Sola/uL Last Edit by KAI Boone on 01/18/24 12:16 UA Nitrite Negative Last Edit by KAI Boone on 01/18/24 12:16 UA Urobilinogen 0.2 mg/dL Last Edit by KAI Boone on 01/18/24 12:1 6 UA Protein 0 mg/dL Last Edit by KAI Boone on 01/18/24 12:16 UA pH 6.5 Last Edit by KAI Boone on 01/18/24 12:16 UA Blood 0 Demond/uL Last Edit by KAI Boone on 01/18/24 12:16 UA Specific [place] 1.005 Last Edit by KAI Boone on 01/18/24 12: 16 UA Ketone Negative Last Edit by KAI Boone on 01/18/24 12:16 UA Bilirubin 0 mg/dL Last Edit by KAI Boone on 01/18/24 12:16 UA Glucose 0 mg/dL Last Edit by KAI Boone on 01/18/24 12:16 Results Reviewed Results Reviewed: Laboratory Last Values Urine pH (Auto) 6.5 01/18/24 12:15 Specific [place] (Auto) 1.005 01/18/24 12:15 Urine Protein (Auto) 0 mg/dL 01/18/24 12:15 Glucose (UA)(Auto) 0 mg/dL 01/18/24 12:15 Urine Ketones (Auto) Negative 01/18/24 12:15 Urine Blood (Auto) 0 Demond/uL 01/18/24 12:15 Urine Nitrite (Auto) Negative 01/18/24 12:15 Urine Bilirubin (Auto) 0 mg/dL 01/18/24 12:15 Urine Urobilinogen (Auto) 0.2 mg/dL 01/18/24 12:15 Leukocyte Esterase (Auto) 0 Sola/uL 01/18/24 12:15 Date of Service: 11/09/23 EXAMINATION: CT ABDOMEN AND PELVIS WITHOUT CONTRAST CLINICAL INFORMATION: Renal calculus COMPARISON: Ultrasound dated 09/03/2023 TECHNIQUE: Multidetector volumetric imaging was performed from the superior aspect of the liver through the pubic symphysis. Sagittal and coronal reformatted images were obtained on the technologist's workstation. This CT examination was performed using dose optimization techniques as appropriate, variously including the following: *Automated exposure control *Adjustment of mA and/or kV according to patient size (this includes techniques or standardized protocols for targeted exams where dose is matched to indication/reason for exam; i.e. extremities or head) *Use of iterative reconstruction technique DLP: 509 mGy-cm FINDINGS: LUNG BASES: Unremarkable. ABDOMINAL AND PELVIC WALL: Unremarkable. LIVER AND BILIARY TREE: Unremarkable. GALLBLADDER: Unremarkable. PANCREAS: Unremarkable. SPLEEN: Unremarkable. ADRENAL GLANDS: Unremarkable. KIDNEYS AND URETERS: There is a proximal left ureteral 5 mm stone (4:273) with associated mild left hydronephrosis. Curvilinear calcification in the mid right renal parenchyma may reflect calcifications within a cyst, although lack of IV contrast limits evaluation. GASTROINTESTINAL TRACT: Unremarkable. VASCULAR: Unremarkable. LYMPH NODES/PERITONEUM: No lymphadenopathy. FREE FLUID: None. BLADDER: Unremarkable. PELVIC VISCERA: Unremarkable. OSSEOUS STRUCTURES: Unremarkable. IMPRESSION: * Proximal left ureteral 5 mm stone with associated mild left hydronephrosis. * Curvilinear calcification in the mid right renal parenchyma may reflect calcifications within a cyst, although lack of IV contrast limits evaluation. Assessment & Plan Assessment & Plan (1) Hydronephrosis, left: Code(s): N13.30 - Unspecified hydronephrosis Category: Medical (2) Kidney stone on left side: Code(s): N20.0 - Calculus of kidney Category: Medical (3) Bilateral kidney stones: Code(s): N20.0 - Calculus of kidney Category: Medical Plan Monitor kidney stones, Vit B6 100 mg daily Orders: Orders AMB Urinalysis Automated 01/18/24 Z13.9 - Encounter for screening, unspecified US renal BI 3 Months N20.0 - Calculus of kidney US renal BI 01/21/24 N20.0 - Calculus of kidney Medications: New pyridoxine (vitamin B6) 100 mg PO DAILY 90 tabs 3RF Patient Instructions: The patient had an opportunity to ask questions regarding treatment plan. All questions were answered. Imaging, results were discussed and reviewed in detail. No major barriers to understanding were identified. The patient expressed understanding and agreement with the above treatment plan. The patient is aware they should contact our office by phone for worsening of their current condition or the appearance of new symptoms. Compliance is encouraged with any medications and followup testing that is ordered. It is a privilege to be allowed the opportunity to participate in the urologic care of your patient. If you have any questions or concerns regarding treatment for the above conditions please do not hesitate to contact me. The office telephone contact is [phone]. This note is constructed in part using voice recognition software. While every effort has been made to ensure accuracy reed maker errors may have been included. Yours sincerely, Mayank Anderson MD Coding Level of Care Code Est Pt Level 4 (85783) Diagnoses Hydronephrosis, left N13.30 Kidney stone on left side N20.0 Bilateral kidney stones N20.0
== END 2024-01-18 12:35 | disposition home or self-care (01) ==
PROVIDERS: PCP Internal Medicine; Visit Provider Urology
DX: N13.30 Unspecified hydronephrosis (principal); N20.0 Calculus of kidney
CPT/HCPCS: 99214

== ENCOUNTER → 2024-01-18 11:34 | Outpatient (BNVA) | payer BC, SELFPAY | PROVIDERS: PCP Internal Medicine; Visit Provider Urology | DX: N13.2 Hydronephrosis with renal and ureteral calculous obstruction (principal) | CPT/HCPCS: 81003 ==

== ENCOUNTER 2024-01-30 10:44 | Outpatient (AMB) | payer BC, SELFPAY ==
[2024-01-30 10:48] VITALS: BP 164/82; PULSE 117; O2SAT 98; BMI 34.7
--- NOTE | 2024-01-30 10:48 | MHC.OFFWIV ---
Intake Vital Signs 01/30/24 10:48 Height 5 ft 3 in Weight 196 lb BMI 34.7 BP 164/82 H Blood Pressure Location Lt brachial Position Sitting Pulse 117 H Pulse Source Pulse Oximeter Pulse Oximetry (%) 98 Oxygen Delivery Method Room Air Intake Visit Reasons: EP ?UTI Patient Tobacco Use Status: Never used Tobacco Allergies bees Allergy (Severe, Uncoded 09/12/23 11:55) severe pain and swelling over bite (yellow Jacket) Medication List - Last Reconciled 01/30/24 by Cassie Prieto MD amlodipine 5 mg PO DAILY pyridoxine (vitamin B6) 100 mg PO DAILY spironolactone 12.5 mg PO DAILY Do you need a note to return to daycare/school/sports/work: Yes HPI EP ?UTI HPI Details Patient is 63-year-old female came in today to be evaluated for possible urinary tract infection Patient was evaluated few days ago at urgent Care in [facility] and she was started on Bactrim Patient says that she started feeling better and then she received a call from urgent Care that stop Bactrim because culture did not show any growth Today's UA shows 3+ blood Patient have a history of kidney stone 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 Review system: There is no nausea vomiting no fever chills no back pain she has slight discomfort suprapubic [facility] Medical History Kidney stone on left side Hydronephrosis, left History of nephrolithiasis Right shoulder pain Annual visit for general adult medical examination with abnormal findings Microhematuria Dyslipidemia Essential hypertension Surgical History Hx of section Hx of colonoscopy Social History Housing: House Alcohol intake: current Patient Tobacco Use Status: Never used Tobacco e-Cigarette/Vaping Use: Never Used Second Hand Smoke Exposure: No service: No Current occupational status: employed Cognitive needs: No Hearing needs: No Vision needs: Yes Review of Systems Const All systems reviewed & are unremarkable except as noted in HPI and below Physical Exam Vital Signs: Last Vital Signs Pulse 117 H 01/30/24 10:48 BP 164/82 H 01/30/24 10:48 Pulse Ox 98 01/30/24 10:48 Oxygen Delivery Method Room Air 01/30/24 10:48 BMI result Body Mass Index 34.7 Const General: no acute distress Orientation/consciousness: patient oriented x3 Eyes General: appearance normal, both eyes and all related structures Resp Effort & Inspection: normal respiratory effort and able to speak in complete sentences Auscultation: clear to auscultation bilaterally Cardio Other: S1 S2 GI Other: Mild suprapubic discomfort with pressure General: Yes no CVA tenderness Back/Spine/Pelvis Back: no CVA tenderness Neuro General: patient oriented x3 Psych Mental Status: mental status grossly normal Results AMB Urinalysis, Automated UA Leukoctes 0 Sloa/uL Last Edit by Desi Chilel MA on 01/30/24 11:00 UA Nitrite Negative Last Edit by Desi Chilel MA on 01/30/24 11:00 UA Urobilinogen 0.2 mg/dL Last Edit by Desi Chilel MA on 01/30/24 11:00 UA Protein 0 mg/dL Last Edit by Desi Chilel MA on 01/30/24 11:00 UA pH 6.0 Last Edit by Desi Chilel MA on 01/30/24 11:00 UA Blood 200 Demond/uL Last Edit by Desi Chilel MA on 01/30/24 11:00 UA Specific [place] 1.010 Last Edit by Desi Chilel MA on 01/30/24 11:00 UA Ketone Negative Last Edit by Desi Chilel MA on 01/30/24 11:00 UA Bilirubin 0 mg/dL Last Edit by Desi Chilel MA on 01/30/24 11:00 UA Glucose 0 mg/dL Last Edit by Desi Chilel MA on 01/30/24 11:00 Results Reviewed Results Reviewed: Laboratory Last Values Urine pH (Auto) 6.0 01/30/24 10:59 Specific [place] (Auto) 1.010 01/30/24 10:59 Urine Protein (Auto) 0 mg/dL 01/30/24 10:59 Glucose (UA)(Auto) 0 mg/dL 01/30/24 10:59 Urine Ketones (Auto) Negative 01/30/24 10:59 Urine Blood (Auto) 200 Demond/uL 01/30/24 10:59 Urine Nitrite (Auto) Negative 01/30/24 10:59 Urine Bilirubin (Auto) 0 mg/dL 01/30/24 10:59 Urine Urobilinogen (Auto) 0.2 mg/dL 01/30/24 10:59 Leukocyte Esterase (Auto) 0 Sola/uL 01/30/24 10:59 Assessment & Plan Assessment & Plan (1) Blood in urine: Code(s): R31.9 - Hematuria, unspecified Qualifiers: Hematuria type: gross Qualified Code(s): R31.0 - Gross hematuria (2) History of nephrolithiasis: Comment: left - 2012 Code(s): Z87.442 - Personal history of urinary calculi Plan Patient is 63-year-old female came in today to be evaluated for possible urinary tract infection Patient was evaluated few days ago at urgent Care in [facility] and she was started on Bactrim Patient says that she started feeling better and then she received a call from urgent Care that stop Bactrim because culture did not show any growth Today's UA shows 3+ blood Patient have a history of kidney stone 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 Review system: There is no nausea vomiting no fever chills no back pain she has slight discomfort suprapubic Coding Level of Care Code Est Pt Level 3 (60648) Diagnoses Gross hematuria R31.0 Hematuria type: gross History of nephrolithiasis Z87.442
== END 2024-01-30 12:00 | disposition home or self-care (01) ==
PROVIDERS: PCP Internal Medicine; Visit Provider Internal Medicine
DX: R31.0 Gross hematuria (principal); Z87.442 Personal history of urinary calculi
CPT/HCPCS: 99213

== ENCOUNTER 2024-02-01 13:14 | Outpatient (REF) | payer BC, SELFPAY ==
[2024-02-01 16:20] LABS: Appearance Urine Clear; Color Urine Yellow; Glucose Urine UA Negative (Negative); Leukocyte Esterase Urine Negative (Negative); Nitrite Urine Negative (Negative); Specific Gravity - Urine <= 1.005 (1.005-1.025); UMIC TRIGGER UA YES; Urine Blood Trace (Negative); Urine Ketones Negative (Negative); Urine Protein Negative (Neg-Trace)
[2024-02-01 16:23] LABS: Bacteria Urine None Seen (None Seen); Hyaline Casts Urine 0-2 /LPF (0-2); RBC Urine 0-2 /HPF (0-2); Squamous Epithelial Cell Urine 0-2 /HPF (0-2); WBC Urine 0-5 /HPF (0-5)
== END 2024-02-01 13:15 | disposition home or self-care (01) ==
LOC: HO.HMGCLDS 13:14
PROVIDERS: PCP Internal Medicine; Visit Provider Urology
DX: N20.0 Calculus of kidney (principal); R31.29 Other microscopic hematuria
CPT/HCPCS: 81001; 87086

== ENCOUNTER 2024-02-02 06:30 | Outpatient (REF) | payer BC, SELFPAY ==
[2024-02-03 11:22] LABS: Creatinine, mg/dL 23.02
[2024-02-03 11:36] LABS: Creatinine, 24Hr Urine 0.7 G/Day (1.0-2.0); Total Volume 24 Hour Urine 3100 mL
[2024-02-03 11:36] LABS: Total Volume 24 Hour Urine 3100 mL
[2024-02-03 11:54] LABS: Sodium 24 Hr Urine < 62.0 mmol/Day (40-220); Sodium, 24 Hr Urine < 20.0 mmol/L
[2024-02-03 12:00] LABS: Creatinine, 24Hr Urine 0.7 G/Day (1.0-2.0); Creatinine, mg/dL 23.37
[2024-02-07 03:08] LABS: 24hr Urine Total Volume 3100 mL
[2024-02-07 22:34] LABS: Citric Acid, 24hr Urine 245 mg/24 h (100-1300); Citric Acid/Creat Ratio 24U 298 mg/g creat (180-1070); Creatinine, 24U 0.82 g/24 h (0.50-2.15)
== END 2024-02-02 06:31 | disposition home or self-care (01) ==
LOC: HO.HMGCLNP 06:30
PROVIDERS: PCP Internal Medicine; Visit Provider Internal Medicine Hypertension Specialist
DX: N20.0 Calculus of kidney (principal)
CPT/HCPCS: 82507; 82570; 83945; 84300

== ENCOUNTER 2024-02-07 09:43 | Outpatient (AMB) | payer BC, SELFPAY ==
[2024-02-07 10:21] VITALS: BP 128/86; PULSE 90; O2SAT 98; BMI 33.8
--- NOTE | 2024-02-07 10:21 | HO.NEPHOV ---
HPI HPI Comments History of Present Illness Details Steffany is a pleasant middle-aged woman with a history of hypertension. She has been monitoring her blood pressure at home. Overall blood pressure seems to be well controlled. Recently she developed severe left flank pain which lasted for few days. She visited the ER and ultrasound showed a left ureteral calculus with hydronephrosis. She has been referred to Urology. Her next appointment is on September 12. At present she does not have any pain No urinary symptoms She has lost 6-10 lb 10/30/2023. Overall the blood is doing well. Few weeks ago showed severe right-sided pain. The pain suddenly dropped from 100 down to 0. Since then she has had no issues. She underwent a renal ultrasonogram showed bilateral brain nephrolithiasis. No obstruction was noted. She is scheduled for a follow-up CT scan. 02/07/2024. Several weeks ago she had left renal colic and she felt that she had passed a stone. Pain subsided. About 10 days ago she developed left-sided flank pain and suprapubic pain. She was seen in the urgent care. She was given IV antibiotics apparently there was no UTI. She continues to have difficulty urination. She was given a short course of prednisone which relieved her symptoms seemed temporarily. She had been monitoring blood pressure at home home blood pressure readings have been acceptable. She stopped spironolactone because of bone asked her to stop doing 24 urine collection. [facility] Medical History Kidney stone on left side Hydronephrosis, left History of nephrolithiasis Right shoulder pain Annual visit for general adult medical examination with abnormal findings Microhematuria Dyslipidemia Essential hypertension Surgical History Hx of section Hx of colonoscopy Social History Housing: House Alcohol intake: current Patient Tobacco Use Status: Never used Tobacco e-Cigarette/Vaping Use: Never Used Second Hand Smoke Exposure: No service: No Current occupational status: employed Cognitive needs: No Hearing needs: No Vision needs: Yes Vital Signs 02/07/24 10:21 Height 5 ft 3 in Weight 191 lb BMI 33.8 BP 128/86 Blood Pressure Location Lt brachial Position Sitting Pulse 90 Pulse Source Pulse Oximeter Pulse Oximetry (%) 98 Oxygen Delivery Method Room Air Physical Exam Vital Signs: Last Vital Signs Pulse 90 02/07/24 10:21 BP 128/86 02/07/24 10:21 Pulse Ox 98 02/07/24 10:21 Oxygen Delivery Method Room Air 02/07/24 10:21 BMI result Body Mass Index 33.8 Const General: comfortable Nutritional Appearance: well nourished Orientation/consciousness: patient oriented x3 HEENT Head: No normal to inspection Mouth: moist mucous membranes Neck Neck: Yes supple and Yes no JVD Resp Auscultation: clear to auscultation bilaterally, no rales and rub present Cardio Jugular venous distension: no JVD Palpation: no palpable S3 and no palpable S4 Heart sounds: no rubs GI Palpation (GI): Soft to palpation and nontender Percussion: No Fluid wave present General: Yes no CVA tenderness Back/Spine/Pelvis Back: no CVA tenderness Skin General skin exam: no rashes or lesions noted Neuro General: patient oriented x3 Extrem General: Yes no pedal edema and No clubbing Assessment & Plan Assessment & Plan (1) History of nephrolithiasis: Comment: left - 2012 Code(s): Z87.442 - Personal history of urinary calculi (2) Bilateral kidney stones: Code(s): N20.0 - Calculus of kidney (3) Kidney stone on left side: Code(s): N20.0 - Calculus of kidney (4) Essential hypertension: Code(s): I10 - Essential (primary) hypertension (5) Hydronephrosis, left: Code(s): N13.30 - Unspecified hydronephrosis Plan Steffany has hypertension. Overall blood pressure seems well controlled. She should stay on a low-sodium diet. Encouraged to continue monitoring of blood pressure at home. With further weight loss we might be able to taper and discontinue the antihypertensive. Resumes Aldactazide Left ureteral calculus with hydronephrosis. Repeat ultrasonogram showed bilateral renal stones without hydronephrosis. CT scan showed left ureteral calculus with mild hydro. Subsequently she thinks that she must have passed the stone. Follow-up with Urology. 24 hour urine collection revealed a urine output of 2950 cc which is excellent. Sodium excretion is acceptable. She had mild hyperoxaluria. She is to eat peanuts and berries. She has no change the diet and avoiding oxalate Repeat 24 urine collection is in progress. Volume is more than 3100 cc. Oxalate level was low at less than 16. Citrate and calcium levels are pending Continue to stay on a low-sodium diet Keep p.o. fluid intake to maintain a urine output of at least 2 L per 24 hours Currently she is experiencing pain in the suprapubic region. I believe she has nephrolithiasis leading to these symptoms. No evidence of UTI based on the 2 recent negative urine cultures. I will obtain a CT scan and she may require urological follow-up based on the results. Orders: Orders Basic Metabolic Panel Today Z87.442 - Personal history of urinary calculi Complete Blood Count Auto Diff Today N18.30 - Chronic kidney disease, stage 3 unspecified, Z87.442 - Personal history of urinary calculi CT abdomen wo IV con Today N20.0 - Calculus of kidney, Z87.442 - Personal history of urinary calculi Coding Level of Care Code Est Pt Level 4 (38988) Diagnoses History of nephrolithiasis Z87.442 Bilateral kidney stones N20.0 Kidney stone on left side N20.0 Essential hypertension I10 Hydronephrosis, left N13.30 Results Reviewed Nephrology Results: Sodium 141 mmol/L (135-145) 09/10/23 Potassium 3.5 mmol/L (3.3-5.1) 09/10/23 Chloride 105 mmol/L (96-108) 09/10/23 Carbon Dioxide 27 mmol/L (22-29) 09/10/23 BUN 9 mg/dL (9-16) 09/10/23 Creatinine 0.83 mg/dL (0.5-1.4) 09/10/23 Calcium 9.4 mg/dL (8.4-10.2) 09/10/23 Urine Protein Negative mg/dL (Neg-Trace) 02/01/24 Renal US 09/03/23
== END 2024-02-07 10:59 | disposition home or self-care (01) ==
PROVIDERS: PCP Internal Medicine; Visit Provider Internal Medicine Hypertension Specialist
DX: Z87.442 Personal history of urinary calculi (principal); N20.0 Calculus of kidney; I10 Essential (primary) hypertension; N13.30 Unspecified hydronephrosis
CPT/HCPCS: 99214

== ENCOUNTER → 2024-02-07 09:43 | Outpatient (BNVA) | payer BC, SELFPAY | PROVIDERS: PCP Internal Medicine; Visit Provider Internal Medicine Hypertension Specialist ==

== ENCOUNTER 2024-02-13 13:43 | Outpatient (REF) | payer BC, SELFPAY ==
--- NOTE | ~2024-02-13 | CT_ITS ---
EXAMINATION: CT ABDOMEN WITHOUT CONTRAST CLINICAL INFORMATION: renal stones COMPARISON: CT abdomen/pelvis dated 11/09/2023 TECHNIQUE: Contiguous axial thin section helical images of the abdomen were performed without contrast. The data set was reformatted in the coronal and sagittal planes and reviewed on an independent workstation. This CT examination was performed using dose optimization techniques as appropriate, variously including the following: *Automated exposure control *Adjustment of mA and/or kV according to patient size (this includes techniques or standardized protocols for targeted exams where dose is matched to indication/reason for exam; i.e. extremities or head) *Use of iterative reconstruction technique DLP: 279 mGy-cm FINDINGS: LUNG BASES: The lung bases are clear. No suspicious lung nodules or consolidation. Liver: Homogeneous in attenuation. Normal in size. No focal lesion. Gallbladder: No gallbladder wall thickening, pericholecystic fluid, or pericholecystic stranding. Biliary System: No intrahepatic or extrahepatic biliary ductal dilation. Pancreas: Homogeneous in attenuation. No pancreatic ductal dilatation. No focal lesion. Spleen: Normal in size. Adrenal Glands: No focal nodule. Genitourinary: 9 mm irregular shaped calcification in the lower pole of the right renal cortex. Previously seen 5 mm stone in the proximal left ureter is no longer visualized. Punctate nonobstructive calculi in the lower pole of the left kidney (5:69). No perinephric fluid collection. No right hydroureteronephrosis. Mild fullness of the left renal pelvis and ureter. The distal ureter and bladder are not included in the [id number]. GI: The visualized alimentary tract is normal in course. No bowel wall thickening. No dilated loops of bowel to suggest obstruction. Peritoneum: No pneumoperitoneum. No ascites. No intra-abdominal fluid collection. Lymph Nodes: No pathologically enlarged abdominal or pelvic lymph nodes. Soft Tissues/Musculoskeletal: There is no acute fracture or destructive osseous lesion. CT/CT abdomen wo IV con IMPRESSION: 1. Previously seen 5 mm stone in the proximal left ureter is no longer visualized. There is new mild fullness of the left renal pelvis and ureter without overt hydroureteronephrosis. However, the distal ureter and bladder are not included on this CT of the abdomen and cannot be evaluated for distal ureteral stone. Recommend CT pelvis versus ultrasound of the bladder to assess the distal ureter and bladder if there is clinical concern for obstructing left ureteral stone. 2. Additional punctate nonobstructing left renal calculi in the lower pole. Fleischner guidelines were followed.
== END 2024-02-13 13:44 | disposition home or self-care (01) ==
LOC: HO.CT 13:43
PROVIDERS: PCP Internal Medicine; Visit Provider Internal Medicine Hypertension Specialist
DX: N20.0 Calculus of kidney (principal); Z87.442 Personal history of urinary calculi
CPT/HCPCS: 74150

== ENCOUNTER 2024-02-19 10:22 | Outpatient (REF) | payer BC, SELFPAY ==
--- NOTE | ~2024-02-19 | CT_ITS ---
EXAMINATION: CT PELVIS WITHOUT CONTRAST CLINICAL INFORMATION: Gross hematuria. COMPARISON: CT abdomen 02/13/2024, CT abdomen pelvis 11/09/2023. TECHNIQUE: Helical scanning was performed with submillimeter collimation through the pelvis. Sagittal and coronal multiplanar 2-D reconstructions were obtained. This CT examination was performed using dose optimization techniques as appropriate, variously including the following: *Automated exposure control *Adjustment of mA and/or kV according to patient size (this includes techniques or standardized protocols for targeted exams where dose is matched to indication/reason for exam; i.e. extremities or head) *Use of iterative reconstruction technique DLP: 485 mGy-cm FINDINGS: PELVIS: Two calculi measuring up to 3 mm are seen in the distal left ureter approximately 2 cm above the ureterovesicular junction causing mild hydroureter though this appears less prominent than on the recent CT of the abdomen where the anatomy overlaps. There are phleboliths in the pelvis. A coarse calcification is seen in the left ovary unchanged from CT 11/09/2023. Included segments of small and large bowel are unremarkable. OSSEOUS STRUCTURES: Mild degenerative changes at L5-S1. Mild degenerative changes in the hips and sacroiliac joints. CT/CT pelvis wo IV con IMPRESSION: Two calculi measuring up to 3 mm in maximum diameter seen in the distal left ureter approximately 2 cm above the left UVJ causing mild hydroureter.
== END 2024-02-19 10:23 | disposition home or self-care (01) ==
LOC: HO.CT 10:22
PROVIDERS: PCP Internal Medicine; Visit Provider Psychiatry & Neurology Neurology
DX: R31.0 Gross hematuria (principal); Z87.442 Personal history of urinary calculi
CPT/HCPCS: 72192

== ENCOUNTER 2024-03-03 10:48 | Outpatient (REF) | payer BC, SELFPAY ==
[2024-03-03 13:17] LABS: MANUAL DIFF FLAG NO
[2024-03-03 13:34] LABS: Basophils Percent Auto 0.2 % (0-2); Eosinophils Absolute Auto 0.1 X10*3/uL (0.0-0.4); Eosinophils Percent Auto 0.7 % (0-4); Hematocrit 40.7 % (37.0-47.0); Hemoglobin 13.3 g/dl (12.0-16.0); Imm Gran Abs Auto 0.06 X10*3/uL (0.00-0.03); Imm Gran Pct Auto 0.5 % (0.0-0.4); Lymphocytes Percent Auto 24.8 % (20-40); Mean Corpuscular HGB Conc 32.7 g/dl (31.0-35.0); Mean Corpuscular Hemoglobin 28.1 pg (27.0-33.0); Mean Corpuscular Volume 85.9 fL (80.0-98.0); Mean Platelet Volume 10.2 fL (9.4-12.3); Monocytes Absolute Auto 0.9 X10*3/uL (0.1-1.2); Monocytes Percent Auto 7.1 % (2-11); Neutrophils Absolute Auto 8.1 x10*3/uL (2.0-8.3); Neutrophils Percent Auto 66.7 % (45-73); Platelet Count 356 X10*3/uL (160-400); Red Blood Count 4.74 X10*6/uL (4.20-5.50); Red Cell Distribution Width 14.4 % (11.0-16.0); White Blood Count 12.1 X10*3/uL (4.8-10.8)
[2024-03-03 13:54] LABS: Anion Gap 15 (12-20); Blood Urea Nitrogen 15 mg/dL (9-16); Carbon Dioxide 25 mmol/L (22-29); Chloride 105 mmol/L (96-108); Estimated Glomerular Filt Rate > 60; Glucose Random 135 mg/dL (60-115); Potassium 3.6 mmol/L (3.3-5.1); Sodium 141 mmol/L (135-145)
== END 2024-03-03 10:49 | disposition home or self-care (01) ==
LOC: HO.HMGCLDS 10:48
PROVIDERS: PCP Internal Medicine; Visit Provider Internal Medicine Hypertension Specialist
DX: N18.30 Chronic kidney disease, stage 3 unspecified (principal); Z87.442 Personal history of urinary calculi
CPT/HCPCS: 36415; 80048; 85025

== ENCOUNTER 2024-03-05 10:16 | Outpatient (REF) | payer BC, SELFPAY ==
[2024-03-05 13:32] LABS: Hematocrit 41.8 % (37.0-47.0); Hemoglobin 13.6 g/dl (12.0-16.0); Mean Corpuscular HGB Conc 32.5 g/dl (31.0-35.0); Mean Corpuscular Hemoglobin 27.6 pg (27.0-33.0); Mean Platelet Volume 10.2 fL (9.4-12.3); Platelet Count 343 X10*3/uL (160-400); Red Blood Count 4.92 X10*6/uL (4.20-5.50); Red Cell Distribution Width 14.5 % (11.0-16.0); White Blood Count 7.8 X10*3/uL (4.8-10.8)
[2024-03-05 14:10] LABS: Parathyroid Hormone Intact 67.8 pg/mL (8.7-77.1)
[2024-03-05 15:26] LABS: Alanine Aminotransferase 19 U/L (0-31); Albumin Level 4.7 g/dL (3.5-5.0); Alkaline Phosphatase 72 U/L (39-117); Anion Gap 18 (12-20); Aspartate Amino Transferase 19 U/L (5-31); Bilirubin Total 0.5 mg/dL (0.0-1.0); Blood Urea Nitrogen 13 mg/dL (9-16); Carbon Dioxide 22 mmol/L (22-29); Chloride 106 mmol/L (96-108); Cholesterol 165 mg/dL (<200); Estimated Glomerular Filt Rate > 60; Gamma Glutamyl Transpeptidase 33 U/L (7-33); Glucose Random 93 mg/dL (60-115); HDL Cholesterol 50 mg/dL (>40); LDL Cholesterol Calculated 103 mg/dL (<100); Sodium 142 mmol/L (135-145); Total Protein 8.8 g/dL (6.5-8.0); Triglycerides 63 mg/dL (<150)
[2024-03-05 15:43] LABS: Free T4 (Free Thyroxine) 1.19 ng/dL (0.71-1.85); Insulin 6 uU/mL (2-29)
[2024-03-06 09:39] LABS: DHEA Sulfate 137 mcg/dL (9-118); Triiodothyronine T3 Free 2.9 pg/mL (2.3-4.2)
[2024-03-06 10:54] LABS: Follicle Stimulating Hormone 89.5 mIU/mL
[2024-03-06 13:53] LABS: CRP High Sensitivity >20.0 mg/L
[2024-03-06 17:18] LABS: Thyroid Peroxidase Antibodies 1 IU/mL (<9)
[2024-03-06 18:38] LABS: Thyroglobulin Antibodies <1 IU/mL (< or = 1)
[2024-03-11 08:48] LABS: Triiodothyronine T3 Reverse 22 ng/dL (8-25)
[2024-03-11 13:00] LABS: Testosterone, Free 2.9 pg/mL (0.1-6.4); Testosterone, Total 22 ng/dL (2-45)
[2024-03-12 18:23] LABS: Progesterone <0.1 ng/mL
[2024-03-13 05:14] LABS: Dihydrotestosterone 10 ng/dL (< OR = 20)
[2024-03-15 05:34] LABS: Estradiol Free 0.23 pg/mL; Estradiol, Ultrasensitive 11 pg/mL
== END 2024-03-05 10:17 | disposition home or self-care (01) ==
LOC: HO.HMGCLDS 10:16
PROVIDERS: PCP Internal Medicine; Visit Provider Internal Medicine
DX: E03.9 Hypothyroidism, unspecified (principal); E11.9 Type 2 diabetes mellitus without complications; E55.9 Vitamin D deficiency, unspecified; E78.5 Hyperlipidemia, unspecified; D64.9 Anemia, unspecified; K76.0 Fatty (change of) liver, not elsewhere classified; R53.83 Other fatigue; N95.9 Unspecified menopausal and perimenopausal disorder
CPT/HCPCS: 36415; 80053; 80061; 82306; 82627; 82642; 82670; 82681; 82977; 83001; 83002; 83525; 83970; 84144; 84402; 84403; 84439; 84443; 84481; 84482; 85027; 86141; 86376; 86800

== ENCOUNTER 2024-03-06 08:10 | Outpatient (REF) | payer BC, SELFPAY ==
[2024-03-07 16:53] LABS: Homocysteine 9.7 umol/L (<10.4)
== END 2024-03-06 08:11 | disposition home or self-care (01) ==
LOC: HO.LAB 08:10
PROVIDERS: Visit Provider Internal Medicine
DX: E03.9 Hypothyroidism, unspecified (principal); E11.9 Type 2 diabetes mellitus without complications; E55.9 Vitamin D deficiency, unspecified; D64.9 Anemia, unspecified; E78.5 Hyperlipidemia, unspecified; K76.0 Fatty (change of) liver, not elsewhere classified; R53.83 Other fatigue
CPT/HCPCS: 36415; 83090

== ENCOUNTER 2024-03-06 09:12 | Outpatient (AMB) | payer BC, SELFPAY ==
[2024-03-06 09:25] VITALS: BP 112/88; PULSE 101; O2SAT 98; BMI 33.3
--- NOTE | 2024-03-06 09:25 | HO.NEPHOV ---
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 She has been monitoring her blood pressure at home. Overall blood pressure seems to be well controlled. Recently she developed severe left flank pain which lasted for few days. She visited the ER and ultrasound showed a left ureteral calculus with hydronephrosis. She has been referred to Urology. Her next appointment is on September 12. At present she does not have any pain No urinary symptoms She has lost 6-10 lb 10/30/2023. Overall the blood is doing well. Few weeks ago showed severe right-sided pain. The pain suddenly dropped from 100 down to 0. Since then she has had no issues. She underwent a renal ultrasonogram showed bilateral brain nephrolithiasis. No obstruction was noted. She is scheduled for a follow-up CT scan. 02/07/2024. Several weeks ago she had left renal colic and she felt that she had passed a stone. Pain subsided. About 10 days ago she developed left-sided flank pain and suprapubic pain. She was seen in the urgent care. She was given IV antibiotics apparently there was no UTI. She continues to have difficulty urination. She was given a short course of prednisone which relieved her symptoms seemed temporarily. She had been monitoring blood pressure at home home blood pressure readings have been acceptable. She stopped spironolactone because of bone asked her to stop doing 24 urine collection. 03/06/2024. CT scan showed left ureteral stone with mild hydroureter; still has some pain and she has been taking ibuprofen p.o. She has started a new diet and lost about 4-6 lb [facility] Medical History Kidney stone on left side Hydronephrosis, left History of nephrolithiasis Right shoulder pain Annual visit for general adult medical examination with abnormal findings Microhematuria Dyslipidemia Essential hypertension Surgical History Hx of section Hx of colonoscopy Social History Housing: House Alcohol intake: current Patient Tobacco Use Status: Never used Tobacco e-Cigarette/Vaping Use: Never Used Second Hand Smoke Exposure: No service: No Current occupational status: employed Cognitive needs: No Hearing needs: No Vision needs: Yes Physical Exam Vital Signs: Last Vital Signs Pulse 101 H 03/06/24 09:25 BP 112/88 03/06/24 09:25 Pulse Ox 98 03/06/24 09:25 Oxygen Delivery Method Room Air 03/06/24 09:25 BMI result Body Mass Index 33.3 Const General: comfortable Nutritional Appearance: well nourished Orientation/consciousness: patient oriented x3 HEENT Head: No normal to inspection Mouth: moist mucous membranes Neck Neck: Yes supple and Yes no JVD Resp Auscultation: clear to auscultation bilaterally, no rales and rub present Cardio Jugular venous distension: no JVD Palpation: no palpable S3 and no palpable S4 Heart sounds: no rubs GI Palpation (GI): Soft to palpation and nontender Percussion: No Fluid wave present General: Yes no CVA tenderness Back/Spine/Pelvis Back: no CVA tenderness Skin General skin exam: no rashes or lesions noted Neuro General: patient oriented x3 Extrem General: Yes no pedal edema and No clubbing Results Reviewed Nephrology Results: Hgb 13.6 g/dl (12.0-16.0) 03/05/24 WBC 7.8 X10*3/uL (4.8-10.8) 03/05/24 Plt Count 343 X10*3/uL (160-400) 03/05/24 Sodium 142 mmol/L (135-145) 03/05/24 Potassium 4.0 mmol/L (3.3-5.1) 03/05/24 Chloride 106 mmol/L (96-108) 03/05/24 Carbon Dioxide 22 mmol/L (22-29) 03/05/24 BUN 13 mg/dL (9-16) 03/05/24 Creatinine 0.79 mg/dL (0.5-1.4) 03/05/24 Calcium 10.0 mg/dL (8.4-10.2) 03/05/24 PTH Intact 67.8 pg/mL (8.7-77.1) 03/05/24 Urine Protein Negative mg/dL (Neg-Trace) 02/01/24 Assessment & Plan Assessment & Plan (1) History of nephrolithiasis: Comment: left - 2012 Code(s): Z87.442 - Personal history of urinary calculi Category: Medical (2) Kidney stone on left side: Code(s): N20.0 - Calculus of kidney Category: Medical (3) Essential hypertension: Code(s): I10 - Essential (primary) hypertension Category: Medical (4) Hydronephrosis, left: Code(s): N13.30 - Unspecified hydronephrosis Category: Medical (5) Bilateral kidney stones: Code(s): N20.0 - Calculus of kidney Category: Medical Plan Steffany has hypertension. Overall blood pressure seems well controlled. She should stay on a low-sodium diet. Encouraged to continue monitoring of blood pressure at home. With further weight loss we might be able to taper and discontinue the antihypertensive. Left ureteral calculus with hydronephrosis. Repeat ultrasonogram showed bilateral renal stones without hydronephrosis. CT scan showed left ureteral calculus with mild hydro. Subsequently she thinks that she must have passed the stone. Follow-up with Urology. Stay on tamsulosin 24 hour urine collection revealed a urine output of 2950 cc which is excellent. Sodium excretion is acceptable. She had mild hyperoxaluria. She is to eat peanuts and berries. She has no change the diet and avoiding oxalate Repeat 24 urine collection is in progress. Volume is more than 3100 cc. Oxalate level was low at less than 16. Citrate and calcium levels are pending Continue to stay on a low-sodium diet Keep p.o. fluid intake to maintain a urine output of at least 2 L per 24 hours Orders: Orders Citric Acid 24hr Urine 4 Months N20.0 - Calculus of kidney, Z87.442 - Personal history of urinary calculi Uric Acid, 24Hr Urine Group 4 Months N20.0 - Calculus of kidney, Z87.442 - Personal history of urinary calculi Basic Metabolic Panel Today N20.0 - Calculus of kidney, Z87.442 - Personal history of urinary calculi Sodium, 24Hr Urine Group 4 Months N20.0 - Calculus of kidney, Z87.442 - Personal history of urinary calculi Creatinine, 24 Hr Group 4 Months N20.0 - Calculus of kidney, Z87.442 - Personal history of urinary calculi Calcium, 24 Hr Ur 4 Months N20.0 - Calculus of kidney, Z87.442 - Personal history of urinary calculi Oxalate, 24 Hr 4 Months N20.0 - Calculus of kidney, Z87.442 - Personal history of urinary calculi Medications: Refilled tamsulosin 0.4 mg PO BEDTIME 14 caps 0RF 14 days N20.0 - Calculus of kidney Coding Level of Care Code Est Pt Level 4 (13130) Diagnoses History of nephrolithiasis Z87.442 Kidney stone on left side N20.0 Essential hypertension I10 Hydronephrosis, left N13.30 Bilateral kidney stones N20.0
== END 2024-03-06 10:00 | disposition home or self-care (01) ==
PROVIDERS: PCP Internal Medicine; Visit Provider Internal Medicine Hypertension Specialist
DX: Z87.442 Personal history of urinary calculi (principal); N20.0 Calculus of kidney; I10 Essential (primary) hypertension; N13.30 Unspecified hydronephrosis
CPT/HCPCS: 99214

== ENCOUNTER 2024-04-24 07:53 | Outpatient (AMB) | payer BC, SELFPAY ==
--- NOTE | 2024-04-24 07:56 | MHC.PC.OV ---
Vital Signs 04/24/24 07:58 Height 5 ft 3 in Weight 189 lb BMI 33.5 BP 118/80 Blood Pressure Location Rt brachial Position Sitting Pulse 83 Pulse Source Pulse Oximeter Pulse Oximetry (%) 98 Oxygen Delivery Method Room Air Intake Visit Reasons: PE Intake Note: Pt is here today for her PE: Allergies bees Allergy (Severe, Uncoded 04/24/24 08:20) severe pain and swelling over bite (yellow Jacket) Medication List - Last Reconciled 04/24/24 by Annika Moer MD amlodipine 5 mg PO DAILY spironolactone 12.5 mg PO DAILY Tobacco use date assessed: 04/24/24 Fall risk assessment: No Falls in past year Last assessed Fall Risk: 04/24/24 Dental Screening Dental Screen Date: 04/24/24 Did you have a dental visit in the last 12 months?: Yes Did you have a dental problem in the last 6 months where you did not have access to dental care?: No Was dental information given to patient?: Patient has dentist HPI PE HPI Details 64 year old lady, here today for her physical exam. She has hypertension, currently controlled on spironolactone and amlodipine, followed by Dr. Martell. She also has been dealing with recurrent kidney stones since last year, has been passing oxalate stones and has been doing well now that she changed her diet and staying well hydrated with lemon water. She has cut off all nuts, chocolates, and berries , and now follows a Mediterranean diet. She is up-to-date with her screening mammogram done at [facility] 02/27/2024, and a bone density scan ordered by Dr. Villareal at the same time showed presence of osteopenia in lumbar spine, left total hip and left femoral neck. She had a screening colonoscopy done in [address] Madrigal with removal of hyperplastic polyp, repeat due in 2030. She is up-to-date with all her vaccinations except for the Prevnar 20 which she will be getting today. [facility] Medical History Kidney stone on left side Hydronephrosis, left History of nephrolithiasis Right shoulder pain Annual visit for general adult medical examination with abnormal findings Microhematuria Dyslipidemia Essential hypertension Surgical History Hx of section Hx of colonoscopy Social History Housing: House Alcohol intake: current Patient Tobacco Use Status: Never used Tobacco e-Cigarette/Vaping Use: Never Used Second Hand Smoke Exposure: No service: No Current occupational status: employed Cognitive needs: No Hearing needs: No Vision needs: Yes Questionnaire PHQ-9 Over the last 2 weeks, how often have you been bothered by any of the following problems? 1. Little interest or pleasure in doing things: not at all 2. Feeling down, depressed, or hopeless: not at all 3. Trouble falling or staying asleep, or sleeping too much: not at all 4. Feeling tired or having little energy: not at all 5. Poor appetite or overeating: not at all 6. Feeling bad about yourself - or that you are a failure or have let yourself or your family down: not at all 7. Trouble concentrating on things, such as reading the newspaper or watching television: not at all 8. Moving or speaking so slowly that other people could have noticed. Or the opposite - being so fidgety or restless that you have been moving around a lot more than usual: not at all 9. Thoughts that you would be better off or of hurting yourself in some way: not at all Total score: 0 Depression Screening Interpretation: Negative Depression Screening Done: Yes 89836 - PHQ-9 Billing: Yes Source: Developed by Drs. Augie Estrada, Joanne Bustamante, Reji Monzon and colleagues, with an educational zonia from [employer]. Thrive Questionnaire Date Thrive assessed: 04/24/24 I am a: Patient What is your living situation today?: I have a steady place to live Within the past 12 months, did the food you bought not last and you didn't have the money to get more?: Never true Within the past 12 months, did you worry whether your food would run out before you got money to buy more?: Never true Do you have trouble paying for medicines?: No Do you have trouble getting transportation to medical appointments?: No Do you have trouble paying your heating and electricity bill?: No Do you have trouble taking care of your child, family member or friend?: No Do you have trouble with day-to-day activities such as bathing, preparing meals, shopping, managing finances, etc.?: No Are you currently unemployed and looking for a job?: No Are you interested in more education?: No THRIVE Score: 0 AUDIT C Alcohol Use Questionnaire (AUDIT-C) 1. How often do you have a drink containing alcohol?: Monthly or less 2. How many drinks containing alcohol do you have on a typical day when you are drinking?: 1 or 2 3. How often do you have six or more drinks on one occasion?: Never Total Score: 1 PRATIK-7 AMB Questionnaire PRATIK-7 Date PRATIK - 7 assessed: 04/24/24 Feeling nervous, anxious, or on edge: 0 = Not at all Not being able to stop or control worryin = Not at all Worrying too much about different things: 0 = Not at all Trouble relaxin = Not at all Being so restless that it is hard to sit still: 0 = Not at all Becoming easily annoyed or irritable: 0 = Not at all Feeling afraid as if something awful might happen: 0 = Not at all Total PRATIK-7 score (0-4 normal; 5-9 mild; 10-14 moderate; 15-21 severe): 0 Source: Developed by Drs. Augie Estrada, Joanne Bustamante, Reji Monzon and colleagues, with an educational zonia from [employer]. PRATIK-7 Assessment Billing PRATIK-7 Assessment Tool: PRATIK-7 Assessment 12261 Review of Systems Const Denies fever(s), Denies headache(s) and Denies lethargy Eyes Reports no additional complaints ENT Reports Normal hearing present and Denies headache(s) Card Reports no additional complaints Resp Reports no additional complaints GI Denies abdominal pain, Denies belching, Denies melena, Denies bloating, Denies change in bowel habits, Denies dyspepsia, Denies heartburn, Denies nausea and Denies vomiting Reports no additional complaints Musc Reports as per HPI Skin/Breast Details: She sees Dr. Elizabeth at [facility] Denies breast pain, Denies breast mass, Denies lesions and Denies rash Neuro Reports Normal hearing present, Denies headache(s) and Denies Sensory deficit (Neuro) Psych Reports no additional complaints Endo Reports no additional complaints Aly/Lymph Reports no additional complaints Aller/Immun Reports no additional complaints Physical exam (Primary Care) Vital Signs: Last Vital Signs Pulse 83 04/24/24 07:58 BP 118/80 04/24/24 07:58 Pulse Ox 98 04/24/24 07:58 Oxygen Delivery Method Room Air 04/24/24 07:58 BMI result Body Mass Index 33.5 BMI Assessment/Plan discussion: High BMI High, discussed plan: lifestyle, weight reduction, dietary and physical activity Tobacco/Smoking Status: Tobacco use Status Tobacco use date assessed 04/24/24 04/24/24 08:06 Patient Tobacco Use Status Never used Tobacco 04/24/24 07:58 e-Cigarette/Vaping Use Never Used 04/24/24 07:58 CPT code: Less than 3 minutes PHQ-9: PHQ-9 Score PHQ-9: Total score 0 04/24/24 08:19 Depression Screening Interpretation: Negative Thrive Assessment: Date of Thrive Assessment Date Thrive assessed 04/24/24 04/24/24 08:00 Advance Care Planning discussion: Completed/Scanned Date of discussion: 04/24/24 Who was present: Patient Forms completed: Health Care Proxy and MOLST Time spent: 16-45 minutes Actual minutes spent: 16 Const General: cooperative, comfortable and no acute distress Nutritional Appearance: obese Orientation/consciousness: patient oriented x3 HENMT Head: Yes normocephalic Ears: external ears normal, TM's normal bilaterally and EAC's normal General nose exam: Normal nares present and No nasal discharge present Face and sinus: Yes normal facial exam and Yes face symmetric Mouth: Normal oral and palatal mucosa present and moist mucous membranes Eyes General: appearance normal, both eyes and all related structures Neck Neck: Yes full ROM, Yes no lymphadenopathy and Yes supple Thyroid: Thyroid normal Chest Breast/axilla inspection: normal inspection of the breasts Breast/axilla palpation: normal palpation of the breasts Resp Effort & Inspection: normal respiratory effort Auscultation: clear to auscultation bilaterally Cardio Rate: regular rate Rhythm: regular rhythm Heart sounds: S1 normal heart sound present and S2 normal heart sound present GI Palpation (GI): Soft to palpation, nontender and no guarding Auscultation: normal bowel sounds Back/Spine/Pelvis Cervical Spine: cervical ROM normal Thoracic/Lumbar Spine: thoracic and lumbar spine normal to inspection and thoraco-lumbar ROM normal Skin General skin exam: no rashes or lesions noted Neuro General: patient oriented x3 Cranial nerves: Yes Normal hearing present Sensory Exam: No Sensory deficit (Neuro) Extrem General: Yes full ROM, Yes no pedal edema, Yes no calf tenderness and Yes normal gait Psych Appearance: grossly normal and well kempt Mental Status: mental status grossly normal Speech and movement: Normal speech and movement present Affect: normal affect Attitude: cooperative Thought content: Normal thought content present Insight: Good insight present (Psych) Immunizations pneumoc 20-gonzález conj-dip cr(PF) 0.5 mL IM syringe Performing Provider: Annika More MD Performing Location: [facility] Administered by: Farzana Hollis CMA on 04/24/24 08:43 Dose Route Admin Location Dispensed Lot Number Expiration Date NDC Seam Presser 0.5 mL IM Right Deltoid 0.5 mL [id number] 06/28/25 5590-7415-49 [place] [employer] VIS Given Date VIS Provided VIS Publication Date 04/24/24 Single Vaccine 21 Eligibility Eligibility Date Funding Source Not VFC Eligible 04/24/24 Private Results Reviewed Results Reviewed: Laboratory Tests 03/05/24 11:12 WBC 7.8 Hgb 13.6 Hct 41.8 Plt Count 343 Name: Linda Christopher Age/Sex: 64/F : 1960 Unit#: [id number] Attend Dr: Martinez Griggs MD Re03/05/24 Status: DEP REF Location: [facility] Disch: SPEC : [id number] SCOTTY: 03/05/24-1112 STATUS: COMP REQ : [id number] RECD: 03/05/24-[address]: Martinez Griggs MD COMP: 03/05/24-1543 ENTERED: 03/05/24-[address]: ORDERED: CMP, GGT, Lipid Panel, Vitamin D 25-OH, Free T4, TSH, Insulin Test Result Flag Reference Sodium 142 135-145 mmol/L Potassium 4.0 3.3-5.1 mmol/L CL 106 96-108 mmol/L CO2 22 22-29 mmol/L Gap 18 12-20 BUN 13 9-16 mg/dL Creat 0.79 0.5-1.4 mg/dL EGFR > 60 NOTE: For -Romanian individuals, multiply the result by 1.210. Chronic Kidney Disease: Estimated GFR < 60 mL/min/1.73m2 Severe Kidney Disease: Estimated GFR < 15 mL/min/1.73m2 Glucose, Random 93 60-115 mg/dL CA 10.0 8.4-10.2 mg/dL Total Bili 0.5 0.0-1.0 mg/dL GGT 33 7-33 U/L AST (GOT) 19 5-31 U/L ALT (GPT) 19 0-31 U/L Protein, Total 8.8 H 6.5-8.0 g/dL Alb 4.7 3.5-5.0 g/dL Triglyceride 63 <150 mg/dL Desirable Triglyceride: less than 150 mg/dL Borderline High Triglyceride 150-199 mg/dL High Triglyceride: 200-499 mg/dL Very High Triglyceride: greater than or equal to 5OO mg/dL Cholesterol 165 <200 mg/dL Desirable Cholesterol: less than 200 mg/dL Borderline High Cholesterol: 200-239 mg/dL High Cholesterol: greater than 239 mg/dL LDL Calculated 103 H <100 mg/dL Desirable LDL: less than 100 mg/dL Near Optimal/Above Optimal LDL: 110-129 mg/dL Borderline High LDL: 130-159 mg/dL High LDL: 160-189 mg/dL Very High LDL: greater than or equal to 190 mg/dL HDL 50 >40 mg/dL Desirable HDL: greater than 40 mg/dL Note: This HDL assay may give artificially low results in patients with liver disease. Alk Phos 72 39-117 U/L Vit D 25-OH Tot 27.0 L >30 ng/mL Health Based Reference Values* < 20 ng/mL Deficient 20-30 ng/mL Insufficient > 30 ng/mL Sufficient *Phill ALFARO. N Engl J Med. 2007;357:266-280 Care must be taken in interpreting Vitamin D results from different laboratories and methodologies. Published data demonstrated that results from patients undergoing hemodialysis may show a negative bias when tested with various automated 25-OH vitamin D assays when compared to LC-MS/MS. When testing samples from patients whose predominant form of Vitamin D is Vitamin D2, such as patients receiving Vitamin D2 supplementation, results that are subtherapeutic should be confirmed with another method such as LC-MS/MS. Free T4 1.19 0.71-1.85 ng/dL TSH 3rd Gen. 1.90 0.32-4.0 uIU/mL TSH 3rd Generation ([facility]) Insulin, total 6 2-29 uU/mL This test was performed using the [employer] chemiluminescent method. Values obtained from different assay methods cannot be used interchangeably. This insulin assay shows a possible cross-reactivity with antibodies generated against insulin (immunoreactive insulin and some patients treated with bovine or porcine insulin). Insulin levels may be measured lower in patients with insulin autoimmune syndrome or familial high pro-insulinemia. Laboratory Tests 03/06/24 08:25 Homocysteine 9.7 Assessment and Plan Assessment & Plan (1) Annual visit for general adult medical examination with abnormal findings: Code(s): Z00.01 - Encounter for general adult medical examination with abnormal findings Plan: Discuss recent fasting lab results with patient.. She is up-to-date with her dental prophylaxis, goes every 3 months and is up-to-date with her regular eye exams. Take adequate calcium in diet and vitamin-D 3 at 2000 IU per cap once a day, in addition to weight-bearing exercises to help maintain good muscle tone and weight control. Instructed to do self-breast exam, and is up-to-date with her yearly mammogram,. She has osteopenia in multiple sites as noted on her last bone density scan she is up-to-date with her screening colonoscopy, due again in 2030. Up-to-date with all her vaccinations, Prevnar 20 given today. (2) History of nephrolithiasis: Comment: left - 2012 and 2022 Code(s): Z87.442 - Personal history of urinary calculi Plan: Continue with staying well hydrated with lemon water, and avoidance of chocolates, berries and nuts, followed by Urology (3) Obesity (BMI 35.0-39.9 without comorbidity): Code(s): E66.9 - Obesity, unspecified Plan: Continue with Mediterranean diet and regular exercise (4) Dyslipidemia: Code(s): E78.5 - Hyperlipidemia, unspecified Plan: Reviewed recent fasting lipid profile with patient with levels within normal limit . Continue with adherence to low-cholesterol diet and regular exercise, at least 30 minutes 3 to 4 times a week. Currently on a Mediterranean diet (5) Essential hypertension: Code(s): I10 - Essential (primary) hypertension Plan: Hypertension controlled on spironolactone and amlodipine, followed by Nephrology Orders: Orders Pneumococcal 20 Immunization Today Z23 - Encounter for immunization Coding Level of Care Code Est Pt Prev Care >65y(60614) Diagnoses Annual visit for general adult medical examination with abnormal findings Z00.01 History of nephrolithiasis Z87.442 Obesity (BMI 35.0-39.9 without comorbidity) E66.9 Dyslipidemia E78.5 Essential hypertension I10 Additional Codes PRATIK-7 Assessment Billing - PRATIK-7 Assessment Tool: PRATIK-7 Assessment 56805 ([id number]) Vital Signs *Quality* - Advance Care Planning discussion: Completed/Scanned ([id number]) Vital Signs *Quality* - Time spent: 16-45 minutes ([id number])
[2024-04-24 07:58] VITALS: BP 118/80; PULSE 83; O2SAT 98; BMI 33.5
== END 2024-04-24 08:56 | disposition home or self-care (01) ==
LOC: HO.HMGC 07:53
PROVIDERS: PCP Internal Medicine; Visit Provider Internal Medicine
DX: Z00.00 Encounter for general adult medical examination without abnormal findings (principal); Z68.33 Body mass index [BMI] 33.0-33.9, adult; E66.9 Obesity, unspecified; Z23 Encounter for immunization; Z87.442 Personal history of urinary calculi; E78.5 Hyperlipidemia, unspecified; I10 Essential (primary) hypertension
CPT/HCPCS: 1123F; 90471; 90677; 99397; 99497

== ENCOUNTER 2024-04-30 08:18 | Outpatient (REF) | payer BC, SELFPAY ==
--- NOTE | ~2024-04-30 | US_ITS ---
EXAMINATION: US RETROPERITONEAL LIMITED (RENAL ONLY) CLINICAL INFORMATION: Calculus of kidney. COMPARISON: Pelvic CT 02/19/2024. CT abdomen 02/13/2024. Ultrasound kidneys 09/03/2023 and 08/14/2023. TECHNIQUE: Real-time imaging of the kidneys. Limited visualization due to bowel gas. FINDINGS: RIGHT KIDNEY: 12.0 x 3.7 x 5.3 cm (SAG x AP x TRV). 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 Renal cortical thickness is normal. A 0.3 cm upper pole calculus. Multiple interpolar echogenic foci, largest 0.4 cm may represent a cluster of calcifications. No hydronephrosis. LEFT KIDNEY: 10.9 x 4.5 x 4.2 cm (SAG x AP x TRV). No hydronephrosis. A 0.4 cm lower pole calculus. Renal cortical thickness is normal. Limited visualization. US/US renal BI IMPRESSION: Bilateral nephrolithiasis. No hydronephrosis.
== END 2024-04-30 08:19 | disposition home or self-care (01) ==
LOC: HO.HMGCX 08:18
PROVIDERS: PCP Internal Medicine; Visit Provider Urology
DX: N20.0 Calculus of kidney (principal)
CPT/HCPCS: 76775

== ENCOUNTER 2024-05-16 13:49 | Outpatient (AMB) | payer BC, SELFPAY ==
--- NOTE | 2024-05-16 13:50 | A.OFFVIS_ITS ---
Intake Visit Reasons: 4m/US Intake Note: Patient presents today for 4m/US Meds- None Allergies to Antibiotic- No Known Allergies Blood Thinner- None Bible Reader Required: No Accompanied by: Self / Same As Patient Allergies bees Allergy (Severe, Uncoded 05/16/24 13:51) severe pain and swelling over bite (yellow Jacket) HPI Comments Details: 05/16/24--Steffany is followed for kidney stones. She passed a stone in February. She had a renal ultrasound done, I have reviewed preliminary results no hydronephrosis. 4 mm stone left kidney, cluster tiny stones right kidney. Currently the patient is asymptomatic. She is managed by Nephrology as well. I have encouraged her to continue hydrating with fluids up to 2.5 L. Discussed adding lemon to water citrate in her diet. Will continue vitamin B6 100 mg daily. Follow-up in [address] stone protocol prior. 30 minutes spent in review of records pertaining to this visit and including [id number] discussion with the patient and documentation of this visit. Review of chart: 01/18/24-- Linda is here in follow up for kidney stones, she states she has been doing well. I have reviewed the recent CT scan 11/09/23-- 5 mm left proximal ureteral stone with mild hydronephrosis. She thinks she passed the kidney stone. She is followed by Nephrology. 09/12/2023---Linda is a 63-year-old female who presents today to the office to establish as a new patient for an evaluation of renal calculus. The Patient states that about a month ago she had left flank pain. She admits that she was very busy the day prior, and did not consume much water on that day. She states that the pain did increase even after increasing her fluids. She states that she went to her PCP at that time and US of the of the left kidney was done on 08/14/23 which noted moderate hydronephrosis secondary to a 6 mm stone at the UPJ. She states that the pain on the left side did resolve with her increase in fluids intake. She had a follow-up with her cigarette machine filler a week ago who ordered a repeat US to reevaluate the kidneys. I have reviewed the FU renal US which showed multiple stones in both the kidneys and the hydronephrosis has resolved. I reviewed the lab data results from 09/10/2023 showed BUN was 9 and creatinine was 0.83. I have discussed diet modifications to decrease the risks of kidney stones by consuming adequate amount of fluids 2- 2.5 L daily, and low oxalate and low sodium diet. Evaluation today--UA--Blood: negative; protein: negative. Plan--There is a significant discrepancy in the 2 renal US's - I will check a Cat scan stone protocol to re evaluate. [facility] Medical History Kidney stone on left side Hydronephrosis, left History of nephrolithiasis Right shoulder pain Annual visit for general adult medical examination with abnormal findings Microhematuria Dyslipidemia Essential hypertension Surgical History Hx of section Hx of colonoscopy Social History Housing: House Alcohol intake: current Patient Tobacco Use Status: Never used Tobacco e-Cigarette/Vaping Use: Never Used Second Hand Smoke Exposure: No service: No Current occupational status: employed Cognitive needs: No Hearing needs: No Vision needs: Yes Review of Systems Const All systems reviewed & are unremarkable except as noted in HPI and below Reports no additional complaints Eyes Reports no additional complaints ENT Reports no additional complaints Card Reports no additional complaints Resp Reports no additional complaints GI Reports no additional complaints Reports as per HPI Musc Reports no additional complaints Skin/Breast Reports system reviewed and no additional complaints, except as documented Neuro Reports no additional complaints Psych Reports no additional complaints Endo Reports no additional complaints Aly/Lymph Reports no additional complaints Aller/Immun Reports no additional complaints Results AMB Urinalysis, Automated UA Leukoctes 0 Sola/uL Last Edit by JENI Cline on 05/16/24 13:59 UA Nitrite Negative Last Edit by JENI Cline on 05/16/24 13:59 UA Urobilinogen 0.2 mg/dL Last Edit by Desi Chilel [facility] on 05/16/24 13:5 9 UA Protein 0 mg/dL Last Edit by Desi Chilel [facility] on 05/16/24 13:59 UA pH 6.0 Last Edit by Desi Chilel [facility] on 05/16/24 13:59 UA Blood 0 Demond/uL Last Edit by Desi Chilel [facility] on 05/16/24 13:59 UA Specific [place] 1.010 Last Edit by Desi Chilel [facility] on 05/16/24 13: 59 UA Ketone Negative Last Edit by Desi Chilel [facility] on 05/16/24 13:59 UA Bilirubin 0 mg/dL Last Edit by Desi Chilel [facility] on 05/16/24 13:59 UA Glucose 0 mg/dL Last Edit by Desi Chilel [facility] on 05/16/24 13:59 Results Reviewed Results Reviewed: Laboratory Last Values Urine pH (Auto) 6.0 05/16/24 13:58 Specific [place] (Auto) 1.010 05/16/24 13:58 Urine Protein (Auto) 0 mg/dL 05/16/24 13:58 Glucose (UA)(Auto) 0 mg/dL 05/16/24 13:58 Urine Ketones (Auto) Negative 05/16/24 13:58 Urine Blood (Auto) 0 Demond/uL 05/16/24 13:58 Urine Nitrite (Auto) Negative 05/16/24 13:58 Urine Bilirubin (Auto) 0 mg/dL 05/16/24 13:58 Urine Urobilinogen (Auto) 0.2 mg/dL 05/16/24 13:58 Leukocyte Esterase (Auto) 0 Sola/uL 05/16/24 13:58 04/30/24-- reviewed renal ultrasound films, preliminary reading cluster tiny stones right kidney, 4 mm stone left kidney lower pole. Official radiology reading pending. Date of Service: 11/09/23 EXAMINATION: CT ABDOMEN AND PELVIS WITHOUT CONTRAST CLINICAL INFORMATION: Renal calculus COMPARISON: Ultrasound dated 09/03/2023 TECHNIQUE: Multidetector volumetric imaging was performed from the superior aspect of the liver through the pubic symphysis. Sagittal and coronal reformatted images were obtained on the technologist's workstation. This CT examination was performed using dose optimization techniques as appropriate, variously including the following: *Automated exposure control *Adjustment of mA and/or kV according to patient size (this includes techniques or standardized protocols for targeted exams where dose is matched to indication/reason for exam; i.e. extremities or head) *Use of iterative reconstruction technique DLP: 509 mGy-cm FINDINGS: LUNG BASES: Unremarkable. ABDOMINAL AND PELVIC WALL: Unremarkable. LIVER AND BILIARY TREE: Unremarkable. GALLBLADDER: Unremarkable. PANCREAS: Unremarkable. SPLEEN: Unremarkable. ADRENAL GLANDS: Unremarkable. KIDNEYS AND URETERS: There is a proximal left ureteral 5 mm stone (4:273) with associated mild left hydronephrosis. Curvilinear calcification in the mid right renal parenchyma may reflect calcifications within a cyst, although lack of IV contrast limits evaluation. GASTROINTESTINAL TRACT: Unremarkable. VASCULAR: Unremarkable. LYMPH NODES/PERITONEUM: No lymphadenopathy. FREE FLUID: None. BLADDER: Unremarkable. PELVIC VISCERA: Unremarkable. OSSEOUS STRUCTURES: Unremarkable. IMPRESSION: * Proximal left ureteral 5 mm stone with associated mild left hydronephrosis. * Curvilinear calcification in the mid right renal parenchyma may reflect calcifications within a cyst, although lack of IV contrast limits evaluation. Assessment & Plan Assessment & Plan (1) Bilateral kidney stones: Code(s): N20.0 - Calculus of kidney Category: Medical (2) Hyperoxaluria: Code(s): R82.992 - Hyperoxaluria Category: Medical Plan Monitor kidney stones, Vit B6 100 mg daily Follow-up in [address] stone protocol prior Orders: Orders AMB Urinalysis Automated Today Z13.9 - Encounter for screening, unspecified Patient Instructions: The patient had an opportunity to ask questions regarding treatment plan. The patient expressed understanding and agreement with the above treatment plan. The patient is aware they should contact our office by phone for worsening of their current condition or the appearance of new symptoms. Compliance is encouraged with any medications and followup testing that is ordered. It is a privilege to be allowed the opportunity to participate in the urologic care of your patient. If you have any questions or concerns regarding treatment for the above conditions please do not hesitate to contact me. The office telephone contact is [phone]. This note is constructed in part using voice recognition software. While every effort has been made to ensure accuracy training and development coordinator errors may have been included. Yours sincerely, Mayank Anderson MD Coding Level of Care Code Est Pt Level 4 (75974) Diagnoses Bilateral kidney stones N20.0 Hyperoxaluria R82.992
== END 2024-05-16 14:32 | disposition home or self-care (01) ==
PROVIDERS: PCP Internal Medicine; Visit Provider Urology
DX: N20.0 Calculus of kidney (principal); R82.992 Hyperoxaluria; Z13.9 Encounter for screening, unspecified
CPT/HCPCS: 99214

== ENCOUNTER → 2024-05-16 13:49 | Outpatient (BNVA) | payer BC, SELFPAY | PROVIDERS: PCP Internal Medicine; Visit Provider Urology | DX: N20.0 Calculus of kidney (principal); R82.992 Hyperoxaluria | CPT/HCPCS: 81003 ==

== ENCOUNTER 2024-07-14 06:08 | Outpatient (REF) | payer BC, SELFPAY ==
[2024-07-14 13:19] LABS: Creatinine, mg/dL 62.11
[2024-07-14 13:32] LABS: Creatinine, mg/dL 62.89
[2024-07-14 13:56] LABS: Creatinine, 24Hr Urine 2.4 G/Day (1.0-2.0); Sodium 24 Hr Urine 159.6 mmol/Day (40-220); Total Volume 24 Hour Urine 3800 mL
[2024-07-15 16:34] LABS: Calcium, 24 Hr Urine 277 mg/24 h; Calcium/Creatinine Ratio 118 mg/g creat (30-275); Creatinine 24Hr Urine 2.36 g/24 h (0.50-2.15)
[2024-07-24 22:33] LABS: 24hr Urine Total Volume 3800 mL; Oxalic Acid 24 Urine 45.4 mg/24 h (3.6-38.0)
[2024-07-26 02:43] LABS: 24hr Urine Total Volume 3800 mL; Citric Acid, 24hr Urine 832 mg/24 h (100-1300); Citric Acid/Creat Ratio 24U 370 mg/g creat (180-1070); Creatinine, 24U 2.25 g/24 h (0.50-2.15)
== END 2024-07-14 06:09 | disposition home or self-care (01) ==
LOC: HO.HMGCLNP 06:08
PROVIDERS: PCP Internal Medicine; Visit Provider Internal Medicine Hypertension Specialist
DX: N20.0 Calculus of kidney (principal); Z87.442 Personal history of urinary calculi
CPT/HCPCS: 82340; 82507; 83945; 84300; 84560

== ENCOUNTER 2024-07-24 09:31 | Outpatient (AMB) | payer BC, SELFPAY ==
[2024-07-24 09:34] VITALS: BP 144/88; PULSE 99; O2SAT 97; BMI 33.1
--- NOTE | 2024-07-24 09:34 | HO.NEPHOV ---
Vital Signs 07/24/24 09:34 Height 5 ft 3 in Weight 187 lb BMI 33.1 BP 144/88 H Blood Pressure Location Rt brachial Position Sitting Pulse 99 Pulse Source Pulse Oximeter Pulse Oximetry (%) 97 Oxygen Delivery Method Room Air Intake Visit Reasons: Essential hypertension/ 3 MO FU/ Conf Manager Gaming Required: No Accompanied by: Self / Same As Patient Allergies bees Allergy (Severe, Uncoded 05/16/24 13:51) severe pain and swelling over bite (yellow Jacket) Medication List - Last Reconciled 07/24/24 by Dimitrios Martell MD amlodipine 5 mg PO DAILY spironolactone 12.5 mg (1/2 x 25 mg) PO DAILY HPI Comments Details: Steffany is a pleasant middle-aged woman with a history of hypertension. She has been monitoring her blood pressure at home. Overall blood pressure seems to be well controlled. Recently she developed severe left flank pain which lasted for few days. She visited the ER and ultrasound showed a left ureteral calculus with hydronephrosis. She has been referred to Urology. Her next appointment is on September 12. At present she does not have any pain No urinary symptoms She has lost 6-10 lb 10/30/2023. Overall the blood is doing well. Few weeks ago showed severe right-sided pain. The pain suddenly dropped from 100 down to 0. Since then she has had no issues. She underwent a renal ultrasonogram showed bilateral brain nephrolithiasis. No obstruction was noted. She is scheduled for a follow-up CT scan. 02/07/2024. Several weeks ago she had left renal colic and she felt that she had passed a stone. Pain subsided. About 10 days ago she developed left-sided flank pain and suprapubic pain. She was seen in the urgent care. She was given IV antibiotics apparently there was no UTI. She continues to have difficulty urination. She was given a short course of prednisone which relieved her symptoms seemed temporarily. She had been monitoring blood pressure at home home blood pressure readings have been acceptable. She stopped spironolactone because of bone asked her to stop doing 24 urine collection. 03/06/2024. CT scan showed left ureteral stone with mild hydroureter; still has some pain and she has been taking ibuprofen p.o. She has started a new diet and lost about 4-6 lb 07/24/2024. Steffany recently passed a kidney stone. No further loin pain no urinary symptoms. She is on a special diet and trying to lose weight. Home blood pressure readings are excellent. She underwent 24 urine collection. Mild hypercalciuria and high uric acid excretion is also elevated. Others are pending Volume was 3500 cc [facility] Medical History Kidney stone on left side Hydronephrosis, left History of nephrolithiasis Right shoulder pain Annual visit for general adult medical examination with abnormal findings Microhematuria Dyslipidemia Essential hypertension Surgical History Hx of section Hx of colonoscopy Social History Housing: House Alcohol intake: current Patient Tobacco Use Status: Never used Tobacco e-Cigarette/Vaping Use: Never Used Second Hand Smoke Exposure: No service: No Current occupational status: employed Cognitive needs: No Hearing needs: No Vision needs: Yes Physical Exam Vital Signs: Last Vital Signs Pulse 99 07/24/24 09:34 BP 144/88 H 07/24/24 09:34 Pulse Ox 97 07/24/24 09:34 Oxygen Delivery Method Room Air 07/24/24 09:34 BMI result Body Mass Index 33.1 Const General: comfortable; No acute distress Orientation/consciousness: patient oriented x3 Eyes General: appearance normal, both eyes and all related structures Visual Mccarthy: normal visual mccarthy by confrontation Neck Neck: Yes supple and Yes no JVD Resp Effort & Inspection: normal respiratory effort and respiratory effort not decreased Auscultation: rhonchi Cardio Palpation: no palpable S3 and no palpable S4 Heart sounds: no rubs GI Inspection: Yes normal to inspection Palpation (GI): Soft to palpation Percussion: Yes normal to percussion Auscultation: normal bowel sounds General: Yes no CVA tenderness Back/Spine/Pelvis Back: no CVA tenderness Skin General skin exam: no petechiae and no purpura Neuro General: patient oriented x3 and no focal motor deficits Extrem General: No clubbing and No edema Results Reviewed Nephrology Results: Hgb 13.6 g/dl (12.0-16.0) 03/05/24 WBC 7.8 X10*3/uL (4.8-10.8) 03/05/24 Plt Count 343 X10*3/uL (160-400) 03/05/24 Sodium 142 mmol/L (135-145) 03/05/24 Potassium 4.0 mmol/L (3.3-5.1) 03/05/24 Chloride 106 mmol/L (96-108) 03/05/24 Carbon Dioxide 22 mmol/L (22-29) 03/05/24 BUN 13 mg/dL (9-16) 03/05/24 Creatinine 0.79 mg/dL (0.5-1.4) 03/05/24 Calcium 10.0 mg/dL (8.4-10.2) 03/05/24 PTH Intact 67.8 pg/mL (8.7-77.1) 03/05/24 Renal US 04/30/24 Assessment & Plan Assessment & Plan (1) History of nephrolithiasis: Comment: left - 2012 and 2022 Code(s): Z87.442 - Personal history of urinary calculi Category: Medical (2) Essential hypertension: Code(s): I10 - Essential (primary) hypertension Category: Medical (3) Bilateral kidney stones: Code(s): N20.0 - Calculus of kidney Category: Medical Plan: . Rusty Jeter has hypertension. Overall blood pressure seems well controlled. She should stay on a low-sodium diet. Encouraged to continue monitoring of blood pressure at home. With further weight loss we might be able to taper and discontinue the antihypertensive. Discontinue spironolactone 12.5 mg Left ureteral calculus with hydronephrosis. Repeat ultrasonogram showed bilateral renal stones without hydronephrosis. CT scan showed left ureteral calculus with mild hydro. She passed the stone and 05/17/2024. 24 hour urine collection revealed a urine output of 3300 cc which is excellent. Sodium excretion is acceptable. Oxalate excretion was acceptable. Calcium excretion is elevated encouraged her to decrease calcium supplementation. Uric acid excretions were also elevated encouraged her to cut back on red meat. Continue to stay on a low-sodium diet Keep p.o. fluid intake to maintain a urine output of at least 2 L per 24 hours Coding Level of Care Code Est Pt Level 4 (52773) Diagnoses History of nephrolithiasis Z87.442 Essential hypertension I10 Bilateral kidney stones N20.0
== END 2024-07-24 10:02 | disposition home or self-care (01) ==
PROVIDERS: PCP Internal Medicine; Visit Provider Internal Medicine Hypertension Specialist
DX: I10 Essential (primary) hypertension (principal); N20.0 Calculus of kidney
CPT/HCPCS: 99214

== ENCOUNTER → 2024-07-24 09:31 | Outpatient (BNVA) | payer BC, SELFPAY | PROVIDERS: PCP Internal Medicine; Visit Provider Internal Medicine Hypertension Specialist ==

== ENCOUNTER 2025-02-27 07:51 | Outpatient (REF) | payer BC, SELFPAY ==
--- NOTE | ~2025-02-27 | CT_ITS ---
CLINICAL HISTORY: N20.0 - Calculus of kidney CT abdomen and pelvis without contrast Comparison: 02/19/2024 ,CT/REG/SR - CT ABDOMEN WO IV CON - 02/13/24 13:53 EDT Findings: Small hiatal hernia. Atrophic pancreas. Parenchymal calcification/calcified cyst in the right lower pole kidney, similar to prior. No urolithiasis or hydronephrosis. Rectal mural thickening and colonic mural thickening felt to be related to degree of underdistention. No bowel obstruction. Mildly prominent inguinal nodes, nonspecific. Scattered colonic diverticulosis without diverticulitis or colitis. No evidence for appendicitis. Circumferential bladder wall thickening. Osteoarthritic changes in the hips and pelvis. Osteopenia with diffuse multilevel spondylosis. IMPRESSION: Circumferential bladder wall thickening may be related to degree of underdistention or mild cystitis. This document has been electronically signed by: Dez Bonds MD on 02/28/2025 06:55:39
--- OUTSIDE RECORDS SUMMARY | 2025-02-27 07:56 | XMS_ITS | Clinical Summary ---
Author Organization [facility] Facility Address [address] [place] [address] Care Team Providers Care Environmental Compliance Technician Name Role Phone Lalo More MD Primary Care Provider [phone] Allergies Active Allergy Reactions Criticality Noted Date Comments Olmesartan Other (see comments) 05/02/2014 Medications Probiotic Product (PROBIOTIC DAILY PO) Take 1 capsule by mouth 1 (one) time each day Active Multiple Vitamins-Minera ls (MULTIVITAMIN ADULTS PO) Take 1 capsule by mouth 1 (one) time each day Active spironolactone (Aldactone) 25 MG tablet Take 0.5 tablets (12.5 mg total) by mouth 1 (one) time each day 15 tablet 11 04/05/2023 Active amLODIPine (NORVASC) 5 MG tablet Take 1 tablet (5 mg total) by mouth 1 (one) time each day 90 tablet 3 05/15/2023 Active Active Problems Problem Noted Date Diagnosed Date Essential hypertension 01/27/2021 Vitamin D deficiency 01/27/2021 Family History Relation Status Comments Father Mother Social History Tobacco Use Types Packs/Day Years Used Date Smoking Tobacco: Never Smokeless Tobacco: Never Tobacco Cessation:Counseling Given: Not Answered Alcohol Use Standard Drinks/Week Comments Yes 0 (1 standard drink = 0.6 oz pure alcohol) Alcoholic Drinks/day: Occasional social drink Comments Unknown Sex and Gender Information Value Date Recorded Sex Assigned at Not on file Legal Sex Female 5:07 PM EST Gender Identity Not on file Sexual Orientation Not on file Last Filed Vital Signs Vital Sign Reading Time Taken Comments Blood Pressure 130/90 04/05/2023 4:18 PM EDT Pulse 91 04/05/2023 4:18 PM EDT Temperature - - Respiratory Rate - - Oxygen Saturation 97% 03/30/2022 4:33 PM EDT Inhaled Oxygen Concentration - - Weight 91.6 kg ( lb) 04/05/2023 4:18 PM EDT Height 162.6 cm (5' 4 ) 01/28/2021 1:36 PM EDT Body Mass Index 34.67 01/28/2021 1:36 PM EDT Plan of Treatment Health Maintenance Due Date Last Done Comments Breast Cancer Screening 1960 Pneumococcal Vaccine: 50+ Ye ars (1 of 2 - PCV) 1977 Colorectal Cancer Screening: Annual FOBT 2007 Colorectal Cancer Screening: Colonoscopy 2007 Colorectal Cancer Screening: Sigmoidoscopy 2007 Influenza Vaccine (Season Ended) 2025 Hepatitis B Vaccine Aged Out No longe r eligible based on patient's age to complete this topic Insurance Care Teams Environmental Compliance Technician Relationship Specialty Start Date End Date Lalo More MD [address] [place] [address] [place] [id number] PCP - General Internal Medicine 04/05/23
--- OUTSIDE RECORDS SUMMARY | 2025-02-27 07:56 | XMS_ITS | Patient Health Record ---
Author Organization [facility] Address [address] [facility] [place] [address] Care Team Providers Care Title One Reading Teacher Name Role Phone Argenis LAGUERRE, Annika Munson Primary Care Provider Un available Black, Miriam Unavailable [phone] Caroline Rizo Unavailable [phone] Allergies Allergen (clinical drug ingredient) Drug/Non Drug Allergy documented on EMR Reaction Allergy Type Onset Date Status Bee Sting Unknown Allergy Active Reason For Referral No Information Medications Medication SIG (Take, Route, Frequency, Duration) Notes Start Date End Date Status Night Splint AFO - L1930 as directed 06/06/2017 Active Medrol 4 MG as directed Orally 06/06/2017 Active amLODIPine Besylate 5ml Active Work Note-Appointment . . . [facility] . 05/09/2017 Not-Taki ng Work Note . . . Limited walking/standing due to foot pain until further notice 06/06/2017 Active Social History Tobacco Use: Social History Observation Description Date Details (start date - stop date) Never Smoker NA - NA Tobacco Use/Smoking Question Answer Notes Are you a: nonsmoker Additional Findings: Tobacco Non-User Current no n-smoker Alcohol Screen Question Answer Notes Did you have a drink contain ing alcohol in the past year? Yes How often did you have a dri nk containing alcohol in the past year? Monthly or less (1 point) Points 1 Interpretation Negative Tobacco use other than smoking: Question Answer Notes Are you an other tobacco user? No Encounters Encounter Location Date Provider Diagnosis [facility] [address] [place] [address] 2025 Caroline Perica Plan Of Treatment Next Appt Details Provider Name:Miriam Garcia , 03/02/2025 10:30:00 AM, [address] [facility], [place], [address], Insurance Providers Payer Name Payer Address Payer Phone Subscriber Number Group Number Insured Name Patient Relationship to Insured Coverage Start Date Coverage End Date [facility] [address] [place] [address] [phone] [id number] Linda Christopher Self - patient is the insured Medical (General) History Medical History History ICD Code High blood pressure Raynauds syndrome Measles Chicken pox Surgical History Surgery Date(Month/Year) kidney stones 04/2015 section 11/10/92, 03/19/95
--- OUTSIDE RECORDS SUMMARY | 2025-02-27 07:56 | XMS_ITS ---
Author Organization [facility] Address [address] [facility] [place] [address] Care Team Providers Care Proprietary Trader Name Role Phone Argenis LAGUERRE, Annika Munson Primary Care Provider Un available Miriam Garcia Unavailable [phone] Caroline Rizo Unavailable [phone] REASON FOR VISIT MANAGER OF APPLICATIONS DEVELOPMENT PPWK Entered Encounters Encounter Location Date Provider Diagnosis [facility] [address] [place] [address] 2025 Caroline Rizo Plan Of Treatment Next Appt Details Provider Name:Miriam Garcia , 03/02/2025 10:30:00 AM, [address] [place], [address], Progress Notes * Linda CHRISTOPHER EDOB:1960 (65 yo F)Acc No.[id number] Patient:?Linda CHRISTOPHER :1960???Age:65 Y???Sex:Female Address:[address] [place] [address] * true * Date:? Generated for Printi ng/Faxing/eTransmitting on:?02/27/2025 07:56 AM EDT
== END 2025-02-27 07:52 | disposition home or self-care (01) ==
LOC: HO.CT 07:51
PROVIDERS: PCP Internal Medicine; Visit Provider Urology
DX: N20.0 Calculus of kidney (principal)
CPT/HCPCS: 74176

== ENCOUNTER → 2025-02-27 07:57 | Outpatient (BNV) | payer BC, SELFPAY | PROVIDERS: PCP Internal Medicine; Visit Provider Radiology Diagnostic Radiology | DX: N32.89 Other specified disorders of bladder (principal) | CPT/HCPCS: 74176 ==

== ENCOUNTER 2025-05-22 10:10 | Outpatient (AMB) | payer BC, SELFPAY ==
--- OUTSIDE RECORDS SUMMARY | 2025-04-21 04:30 | XMS_ITS ---
Author Organization [facility] Address [address] [facility] [address] Care Team Providers Care Hat Blocking Operator Name Role Phone Argenis LAGUERRE, Annika Munson Primary Care Provider Un available Black, Miriam Unavailable [phone] Perica, Caroline Unavailable [phone] Allergies Allergen (clinical drug ingredient) Drug/Non Drug Allergy documented on EMR Reaction Allergy Type Onset Date Status Bee Sting Unknown Allergy Active REASON FOR VISIT Seen Sooner Medications Medication SIG (Take, Route, Frequency, Duration) Notes Start Date End Date Status Work Note . . . Limited walking/standing due to foot pain until further notice 06/06/2017 Unknown Medrol 4 MG as directed Orally 06/06/2017 Unknown amLODIPine Besylate 5ml Active Work Note-Appointment . . . Pt had a [facility] appointment today; Duration: . 05/09/2017 Unknown Night Splint AFO - L1930 as directed 06/06/2017 Unknown Social History Tobacco Use: Social History Observation [...] No Encounters Encounter Location Date Provider Diagnosis [facility] [address] [place] [address] 04/21/2025 Caroline Rizo Plan Of Treatment Next Appt Details Provider Name:Miriam Garcia , 06/11/2025 10:00:00 AM, [address] [facility], [place], [address], Progress Notes * Linda CHRISTOPHER EDOB:1960 (65 yo F)Acc No.[id number]:04/21/2025 Progress Notes Patient: Linda BALBUENA Provider: Guerrero Rizo DPM :1960 A ge:65 Y S ex:Female Date:04/21/2025 Address:[address] [place] [address] , [facility] Pcp:Nikolay Castañeda Subjective: * Chief Complaints: * 1 . Seen Sooner. * ROS: G eneral/Constitutional: Nausea d enies. V omiting d enies. H starr Thirst d enies. L oss appetite d enies. C hills d enies. F atigue d enies.?Fever d enies. N ight Sweats d enies. U nexplained weight loss d enies. U nexplained weight gain d enies. H EENTM: Dentures d enies. D izziness d enies. G lasses/contacts a dmits. R etinopathy d enies. B lurred/double vision d enies. T MJ?denies. D ischarge/drainage d enies. I mplants d enies. S ore throat d enies. D ental implants d enies. H jewels of hearing d enies. D ifficulty chewing/swallowing/speaking d enies. N ose bleeds d enies. S ore mouth d enies. ? R espiratory: On Oxygen d enies. P neumonia/pleurisy d enies.?Bronchitis d enies. E mphysema d enies. C oughing d enies. C ough blood?denies. S hortness of breath d enies. W heezing d enies. C ardiovascular: Pacemaker d enies. M BONDED STRUCTURES REPAIRER d enies. W PW d enies. C HF d enies. H eart attack d enies. S eptal defect d enies. R apid beat d enies. C hest pain d enies. A trial Fib. d enies. M urmur/Palpitations d enies. G astrointestinal: Hemorrhoids a dmits. S tomach/Abdominal pain d enies. D ark blood stool d enies. I rritable bowel d enies. C onstipation d enies. D iarrhea d enies. H ematology: Swelling d enies. C lots d enies. V aricose Veins d enies. B ruising d enies. B leeding problem d enies. G enitourinary: Blood urine d enies. F requent/Painfu/urination/bladder control d enies. K idney stones a dmits. I nfection (UTI) d enies. N ephropathy d enies. s ex trans dis (STD) d enies. P rostate d enies. M usculoskeletal: Hammertoes d enies. B unions d enies. B ack Pain d enies. M uscle Cramps/ Resting d enies. M uscle cramps / walking d enies.?Generalized aches and pains d enies. W eakness d enies. I nteg.: Lou d enies. S cars d enies. C orns/calluses?denies. I ngrown nails d enies. P ainful nails d enies. O pen Sores d enies. R ashes d enies. N eurologic: Difficulty sleeping d enies. B rain disorder d enies. N umbness d enies. B alance trouble d enies. C onfusion d enies. F ainting/blackouts d enies. T ingling d enies. T remors d enies. * Medical History: H igh blood pressure, Raynauds syndrome, Measles, Chicken pox. * Surgical History: rachele idney stones 04/2015, section 11/10/92, 03/19/95. * Family History: M other: . F ather: , diagnosed with Other malignant neoplasm of unspecified site. S iblings: diagnosed with Unspecified essential hypertension. * Social History: T obacco Use: T obacco Use/Smoking A re you a: n onsmoker A dditional Findings: Tobacco Non-User C urrent non-smoker Tobacco use other than smoking A re you an other tobacco user? N o D rugs/Alcohol: D rugs H ave you used drugs other than those for medical reasons in the past 12 months? N o Alcohol Screen D id you have a drink containing alcohol in the past year? Y es H ow often did you have a drink containing alcohol in the past year? M onthly or less (1 point) P oints 1 I nterpretation N egative M iscellaneous: C affeine: yes, 1-2 cups per day. Children: yes, 6. Exercise: yes, walking. Marital status: . 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 * Medications: T aking amLODIPine Besylate 5ml , Unknown Work Note . . . . Limited walking/standing due to foot pain until further notice , Unknown Medrol 4 MG Tablet Therapy Pack as directed Orally , Unknown Night Splint AFO - L1930 as directed , Unknown Work Note-Appointment . . . . Pt had a scheduled appointment today * Allergies: B ee Sting. Objective: * Vitals: Assessment: Plan: * Treatment: * Images: * The named appointment provid er may or may not be the originator of this progress note, and it is not deemed complete until electronically signed by the appointment provider. Sign off status: Pending * Provider: Guerrero Rizo DPM Date: 0 04/21/2025 Generated for Chica braga/Britta/Piedad on: 0 05/22/2025 10:27 AM EDT
--- NOTE | 2025-05-22 10:26 | MHC.OFFVIS ---
Intake Visit Reasons: 1y/CT Intake Note: Patient presents today for 1yr/CT Abdomen & Pelvis CT 02/28 Urology Meds- None Allergies to Antibiotic- No Known Allergies Blood Thinner- None Blood Bank Calendar Control Clerk Required: No Accompanied by: Self / Same As Patient Allergies bees Allergy (Severe, Uncoded 05/16/24 13:51) severe pain and swelling over bite (yellow Jacket) HPI Comments Details: 05/22/25-- 05/16/24--Steffany is followed for kidney stones. She passed a stone in February. She had a renal ultrasound done, I have reviewed preliminary results no hydronephrosis. 4 mm stone left kidney, cluster tiny stones right kidney. Currently the patient is asymptomatic. She is managed by Nephrology as well. I have encouraged her to continue hydrating with fluids up to 2.5 L. Discussed adding lemon to water citrate in her diet. Will continue vitamin B6 100 mg daily. Follow-up in [address] stone protocol prior. 30 minutes spent in review of records pertaining to this visit and including [id number] discussion with the patient and documentation of this visit. 01/18/24-- Linda is here in follow up for kidney stones, she states she has been doing well. I have reviewed the recent CT scan 11/09/23-- 5 mm left proximal ureteral stone with mild hydronephrosis. She thinks she passed the kidney stone. She is followed by Nephrology. 09/12/2023---Linda is a 63-year-old female who presents today to the office to establish as a new patient for an evaluation of renal calculus. The Patient states that about a month ago she had left flank pain. She admits that she was very busy the day prior, and did not consume much water on that day. She states that the pain did increase even after increasing her fluids. She states that she went to her PCP at that time and US of the of the left kidney was done on 08/14/23 which noted moderate hydronephrosis secondary to a 6 mm stone at the UPJ. She states that the pain on the left side did resolve with her increase in fluids intake. She had a follow-up with her payment specialist a week ago who ordered a repeat US to reevaluate the kidneys. I have reviewed the FU renal US which showed multiple stones in both the kidneys and the hydronephrosis has resolved. I reviewed the lab data results from 09/10/2023 showed BUN was 9 and creatinine was 0.83. I have discussed diet modifications to decrease the risks of kidney stones by consuming adequate amount of fluids 2- 2.5 L daily, and low oxalate and low sodium diet. Evaluation today--UA--Blood: negative; protein: negative. Plan--There is a significant discrepancy in the 2 renal US's - I will check a Cat scan stone protocol to re evaluate. [facility] Medical History Kidney stone on left side Hydronephrosis, left History of nephrolithiasis Right shoulder pain Annual visit for general adult medical examination with abnormal findings Microhematuria Dyslipidemia Essential hypertension Surgical History Hx of section Hx of colonoscopy Social History Housing: House Alcohol intake: current Patient Tobacco Use Status: Never used Tobacco e-Cigarette/Vaping Use: Never Used Second Hand Smoke Exposure: No service: No Current occupational status: employed Cognitive needs: No Hearing needs: No Vision needs: Yes Results AMB Urinalysis, Automated UA Leukoctes 0 Sola/uL Last Edit by Jayla Hollis on 05/22/25 12:10 UA Nitrite Negative Last Edit by Jayla Hollis on 05/22/25 12:10 UA Urobilinogen 3.5 mg/dL Last Edit by Jayla Hollis on 05/22/25 12:10 UA Protein 0 mg/dL Last Edit by Jayla Hollis on 05/22/25 12:10 UA pH 7.0 Last Edit by Jayla Hollis on 05/22/25 12:10 UA Blood 0 Demond/uL Last Edit by Jayla Hollis on 05/22/25 12:10 UA Specific [place] 1.005 Last Edit by Jayla Hollis on 05/22/25 12:10 UA Ketone Negative Last Edit by Jayla Hlolis on 05/22/25 12:10 UA Bilirubin 0 mg/dL Last Edit by Jayla Hollis on 05/22/25 12:10 UA Glucose 0 mg/dL Last Edit by Jayla Hollis on 05/22/25 12:10 Results Reviewed Results Reviewed: Laboratory Last Values Urine pH (Auto) 7.0 05/22/25 12:03 Specific [place] (Auto) 1.005 05/22/25 12:03 Urine Protein (Auto) 0 mg/dL 05/22/25 12:03 Glucose (UA)(Auto) 0 mg/dL 05/22/25 12:03 Urine Ketones (Auto) Negative 05/22/25 12:03 Urine Blood (Auto) 0 Demond/uL 05/22/25 12:03 Urine Nitrite (Auto) Negative 05/22/25 12:03 Urine Bilirubin (Auto) 0 mg/dL 05/22/25 12:03 Urine Urobilinogen (Auto) 3.5 mg/dL 05/22/25 12:03 Leukocyte Esterase (Auto) 0 Sola/uL 05/22/25 12:03 04/30/24-- reviewed renal ultrasound films, preliminary reading cluster tiny stones right kidney, 4 mm stone left kidney lower pole. Official radiology reading pending. Date of Service: 11/09/23 EXAMINATION: CT ABDOMEN AND PELVIS WITHOUT CONTRAST CLINICAL INFORMATION: Renal calculus COMPARISON: Ultrasound dated 09/03/2023 TECHNIQUE: Multidetector volumetric imaging was performed from the superior aspect of the liver through the pubic symphysis. Sagittal and coronal reformatted images were obtained on the technologist's workstation. This CT examination was performed using dose optimization techniques as appropriate, variously including the following: *Automated exposure control *Adjustment of mA and/or kV according to patient size (this includes techniques or standardized protocols for targeted exams where dose is matched to indication/reason for exam; i.e. extremities or head) *Use of iterative reconstruction technique DLP: 509 mGy-cm FINDINGS: LUNG BASES: Unremarkable. ABDOMINAL AND PELVIC WALL: Unremarkable. LIVER AND BILIARY TREE: Unremarkable. GALLBLADDER: Unremarkable. PANCREAS: Unremarkable. SPLEEN: Unremarkable. ADRENAL GLANDS: Unremarkable. KIDNEYS AND URETERS: There is a proximal left ureteral 5 mm stone (4:273) with associated mild left hydronephrosis. Curvilinear calcification in the mid right renal parenchyma may reflect calcifications within a cyst, although lack of IV contrast limits evaluation. GASTROINTESTINAL TRACT: Unremarkable. VASCULAR: Unremarkable. LYMPH NODES/PERITONEUM: No lymphadenopathy. FREE FLUID: None. BLADDER: Unremarkable. PELVIC VISCERA: Unremarkable. OSSEOUS STRUCTURES: Unremarkable. IMPRESSION: * Proximal left ureteral 5 mm stone with associated mild left hydronephrosis. * Curvilinear calcification in the mid right renal parenchyma may reflect calcifications within a cyst, although lack of IV contrast limits evaluation. Assessment & Plan Assessment & Plan Orders: Orders AMB Urinalysis Automated 05/22/25 N13.30 - Unspecified hydronephrosis, N20.0 - Calculus of kidney Coding
--- OUTSIDE RECORDS SUMMARY | 2025-05-22 10:28 | XMS_ITS | Clinical Summary ---
Author Organization [facility] Address [address] [place] [address] Care Team Providers Care Culinary Arts Instructor Name Role Phone Lalo More MD Primary Care Provider [phone] Allergies Active Allergy Reactions Criticality Noted Date [...] Colorectal Cancer Screening: Sigmoidoscopy 2007 Influenza Vaccine (#1) 2025 Hepatitis B Vaccine Aged Out No longe r eligible based on patient's age to complete this topic Insurance Care Teams Culinary Arts Instructor Relationship Specialty Start Date End Date Lalo More MD [address] [place] [address] [place] [address] PCP - General Internal Medicine 04/05/23
== END 2025-05-22 10:58 | disposition home or self-care (01) ==
LOC: HO.HUSH 10:11
PROVIDERS: PCP Internal Medicine; Visit Provider Urology
DX: N20.0 Calculus of kidney (principal); N13.30 Unspecified hydronephrosis

== ENCOUNTER → 2025-05-22 10:10 | Outpatient (BNVA) | payer BC, SELFPAY | PROVIDERS: PCP Internal Medicine; Visit Provider Urology | DX: N28.1 Cyst of kidney, acquired (principal); R82.992 Hyperoxaluria; Z87.442 Personal history of urinary calculi | CPT/HCPCS: 81003 ==

== ENCOUNTER 2025-05-28 10:57 | Outpatient (AMB) | payer BC, SELFPAY ==
--- OUTSIDE RECORDS SUMMARY | 2025-04-21 04:30 | XMS_ITS ---
Author Organization [facility] Address [address] [facility] [place] [address] Care Team Providers Care Tool Crib Lead Name Role Phone Argenis LAGUERRE, Annika Munson Primary Care Provider Un available Black, Miriam Unavailable [phone] Perica, Caroline Unavailable [phone] Allergies Allergen (clinical drug ingredient) Drug/Non Drug [...] Note-Appointment . . . [facility]; Duration: . 05/09/2017 Unknown [...] No Encounters Encounter Location Date Provider Diagnosis [facility] [address] [facility] [place] [address] 04/21/2025 Caroline Rizo Plan Of Treatment Next Appt Details Provider Name:Miriam Garcia , 06/11/2025 10:00:00 AM, [address] [facility], [place], [address], Progress Notes * Linda CHRISTOPHER EDOB:1960 (65 yo F)Acc No.[id number]:04/21/2025 Progress Notes Patient: Linda BALBUENA Provider: Guerrero Rizo DPM :1960 A ge:65 Y S ex:Female Date:04/21/2025 Address:[address] [place] [address] , [facility] [place] Pcp:Nikolay Castañeda Subjective: * Chief Complaints: * [...] enies. C ardiovascular: Pacemaker d enies. 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 W PW d enies. C [...] 04/21/2025 Generated for Chica braga/Britta/Piedad on: 0 05/28/2025 11:48 AM EDT
[2025-05-28 11:03] VITALS: BP 140/82; PULSE 83; O2SAT 98; BMI 34.9
--- NOTE | 2025-05-28 11:03 | A.OFFPC_ITS ---
Vital Signs 05/28/25 11:03 Height 5 ft 3 in Weight 197 lb BMI 34.9 BP 140/82 H Blood Pressure Location Lt brachial Position Sitting Pulse 83 Pulse Source Pulse Oximeter Pulse Oximetry (%) 98 Oxygen Delivery Method Room Air Intake Visit Reasons: PE Intake Note: pt is here for PE last colonoscopy at [facility] 3 years ago, recall 10 yrs last mammo in 2024 last pap smear every 2 yrs Allergies bees Allergy (Severe, Uncoded 05/31/25 22:24) severe pain and swelling over bite (yellow Jacket) Medication List - Last Reconciled 05/31/25 by Annika More MD amlodipine 5 mg PO DAILY Tobacco use date assessed: 05/28/25 Fall risk assessment: No Falls in past year Last assessed Fall Risk: 05/28/25 Dental Screening Dental Screen Date: 05/28/25 Did you have a dental visit in the last 12 months?: Yes Did you have a dental problem in the last 6 months where you did not have access to dental care?: No Was dental information given to patient?: Patient has dentist HPI PE HPI Details - 65-year-old female with a history of of hypertension, recently diagnosed by Podiatry to have Heard's neuroma, and history of kidney stones, here today for her physical exam.. - Essential Hypertension: The patient re ports her blood pressure is often elevated, with a recent reading of 145 mmHg systolic. - She takes amlodipine 5 mg daily in the morning and has been diagnosed to have white coat hypertension. Denies any headache, no lightheadedness, no chest pain, no shortness of breath. - Heard's Neuroma: The patient describe s a painful sensation in the left foot, caused by stepping on a rock. She was diagnosed with Heard's neuroma and advised to wear special sneakers with insoles. High-dose ibuprofen was prescribed, which elevated her blood pressure, but the pain has since decreased. - Kidney Stones: The patient has a histo ry of kidney stones, which she passed earlier this year. She was advised to increase her water intake to 64 ounces daily and consume lemon water. - Vitamin D Deficiency: The patient was previously found to have low vitamin D levels and is currently taking multivitamins. - osteopenia: is due for a follow-up ban ne density scan. - COVID-19: The patient had COVID-19 inf ection in October and is up to date with vaccinations. -up-to-date with her screening colonosco py, mammogram and cervical cancer screening [facility] Medical History (Updated 05/31/25 @ 22:30 by Annika More MD) Hydronephrosis, left History of nephrolithiasis Annual visit for general adult medical examination with abnormal findings Dyslipidemia Essential hypertension Surgical History Hx of section Hx of colonoscopy Social History Housing: House Alcohol intake: current Patient Tobacco Use Status: Never used Tobacco e-Cigarette/Vaping Use: Never Used Second Hand Smoke Exposure: No service: No Current occupational status: employed 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 1. Little interest or pleasure in doing things: not at all 2. Feeling down, depressed, or hopeless: not at all 3. Trouble falling or staying asleep, or sleeping too much: not at all 4. Feeling tired or having little energy: not at all 5. Poor appetite or overeating: not at all 6. Feeling bad about yourself - or that you are a failure or have let yourself or your family down: not at all 7. Trouble concentrating on things, such as reading the newspaper or watching television: not at all 8. Moving or speaking so slowly that other people could have noticed. Or the opposite - being so fidgety or restless that you have been moving around a lot more than usual: not at all 9. Thoughts that you would be better off or of hurting yourself in some way: not at all Total score: 0 Depression Screening Interpretation: Negative Depression Screening Done: Yes 61995 - PHQ-9 Billing: Yes Source: Developed by Drs. Augie Estrada, Joanne Bustamante, Reji Monzon and colleagues, with an educational zonia from [employer]. Thrive Questionnaire Date Thrive assessed: 05/28/25 I am a: Patient What is your living situation today?: I have a steady place to live Within the past 12 months, did the food you bought not last and you didn't have the money to get more?: Never true Within the past 12 months, did you worry whether your food would run out before you got money to buy more?: Never true Do you have trouble paying for medicines?: No Do you have trouble getting transportation to medical appointments?: No Do you have trouble paying your heating and electricity bill?: No Do you have trouble taking care of your child, family member or friend?: No Do you have trouble with day-to-day activities such as bathing, preparing meals, shopping, managing finances, etc.?: No Are you currently unemployed and looking for a job?: No Are you interested in more education?: No Please select the resources that you would like help with: None Currently or been in a relationship where the following occur: No concerns reported THRIVE Score: 0 AUDIT C Alcohol Use Questionnaire (AUDIT-C) 1. How often do you have a drink containing alcohol?: Monthly or less 2. How many drinks containing alcohol do you have on a typical day when you are drinking?: 1 or 2 3. How often do you have six or more drinks on one occasion?: Never Total Score: 1 Score Reviewed/Action Taken: Yes PRATIK-7 AMB Questionnaire PRATIK-7 Date PRATIK - 7 assessed: 05/28/25 Feeling nervous, anxious, or on edge: 0 = Not at all Not being able to stop or control worryin = Not at all Worrying too much about different things: 0 = Not at all Trouble relaxin = Not at all Being so restless that it is hard to sit still: 0 = Not at all Becoming easily annoyed or irritable: 0 = Not at all Feeling afraid as if something awful might happen: 0 = Not at all Total PRATIK-7 score (0-4 normal; 5-9 mild; 10-14 moderate; 15-21 severe): 0 Source: Developed by Drs. Augie Estrada, Joanne Bustamante, Reji Monzon and colleagues, with an educational zonia from [employer]. PRATIK-7 Assessment Billing PRATIK-7 Assessment Tool: PRATIK-7 Assessment 59708 Review of Systems Const Denies fever(s), Denies headache(s), Denies lethargy and Reports weight gain Eyes Details: sees [facility] in [place] Reports no additional complaints ENT Reports Normal hearing present and Denies headache(s) Card Reports no additional complaints Resp Reports no additional complaints GI Denies abdominal pain, Denies belching, Denies melena, Denies bloating, Denies change in bowel habits, Denies dyspepsia, Denies heartburn, Denies nausea and Denies vomiting Reports no additional complaints Musc Details: Heard Neuroma , see Dr Garcia Reports as per HPI Skin/Breast Details: She sees Dr. Elizabeth at [facility] Denies breast pain, Denies breast mass, Denies lesions and Denies rash Neuro Reports Normal hearing present, Denies headache(s) and Denies Sensory deficit (Neuro) Psych Reports no additional complaints Endo Reports no additional complaints Aly/Lymph Reports no additional complaints Aller/Immun Reports no additional complaints Physical exam (Primary Care) Vital Signs: Last Vital Signs Pulse 83 05/28/25 11:03 BP 140/82 H 05/28/25 11:03 Pulse Ox 98 05/28/25 11:03 Oxygen Delivery Method Room Air 05/28/25 11:03 BMI result Body Mass Index 34.9 Tobacco/Smoking Status: Tobacco use Status Tobacco use date assessed 05/28/25 05/28/25 11:08 Patient Tobacco Use Status Never used Tobacco 05/28/25 11:08 e-Cigarette/Vaping Use Never Used 05/28/25 11:08 PHQ-9: PHQ-9 Score PHQ-9: Total score 0 05/28/25 11:26 Depression Screening Interpretation: Negative Thrive Assessment: Date of Thrive Assessment Date Thrive assessed 05/28/25 05/28/25 11:08 Currently or been in a relationship where the following occur: No concerns re ported Const General: comfortable and no acute distress Nutritional Appearance: obese Orientation/consciousness: patient oriented x3 HENMT Head: Yes normocephalic Ears: external ears normal, TM's normal bilaterally and EAC's normal General nose exam: Normal nares present and No nasal discharge present Face and sinus: Yes normal facial exam and Yes face symmetric Mouth: Normal oral and palatal mucosa present and moist mucous membranes Eyes General: appearance normal, both eyes and all related structures Neck Neck: Yes full ROM, Yes no lymphadenopathy and Yes supple Thyroid: Thyroid normal Chest Breast/axilla inspection: normal inspection of the breasts Breast/axilla palpation: normal palpation of the breasts Resp Effort & Inspection: normal respiratory effort Auscultation: clear to auscultation bilaterally Cardio Rate: regular rate Rhythm: regular rhythm Heart sounds: S1 normal heart sound present and S2 normal heart sound present GI Palpation (GI): Soft to palpation, nontender and no guarding Auscultation: normal bowel sounds Back/Spine/Pelvis Cervical Spine: cervical ROM normal Thoracic/Lumbar Spine: thoracic and lumbar spine normal to inspection and thoraco-lumbar ROM normal Skin General skin exam: no rashes or lesions noted Neuro General: patient oriented x3 Cranial nerves: Yes Normal hearing present Sensory Exam: No Sensory deficit (Neuro) Extrem General: Yes full ROM, Yes no pedal edema, Yes no calf tenderness and Yes normal gait Psych Appearance: grossly normal and well kempt Mental Status: mental status grossly normal Speech and movement: Normal speech and movement present Affect: normal affect Coding Level of Care Code Est Pt Prev Care >65y(33814) Diagnoses Annual visit for general adult medical examination with abnormal findings Z00. Dyslipidemia E78.5 Essential hypertension I10 Obesity (BMI 35.0-39.9 without comorbidity) E66.9 History of nephrolithiasis Z87.442 Additional Codes PRATIK-7 Assessment Billing - PRATIK-7 Assessment Tool: PRATIK-7 Assessment 24888 ([id number]) PHQ-9 - 94962 - PHQ-9 Billing: Yes ([id number]) Assessment & Plan Assessment & Plan (1) Annual visit for general adult medical examination with abnormal findings: Code(s): Z00.01 - Encounter for general adult medical examination with abnormal findings Category: Medical (2) Dyslipidemia: Code(s): E78.5 - Hyperlipidemia, unspecified Category: Medical (3) Essential hypertension: Code(s): I10 - Essential (primary) hypertension Category: Medical (4) Obesity (BMI 35.0-39.9 without comorbidity): Code(s): E66.9 - Obesity, unspecified Category: Medical (5) History of nephrolithiasis: Comment: left - 2012 and 2022 Code(s): Z87.442 - Personal history of urinary calculi Category: Medical Plan The patient will continue monitoring her blood pressure at home and is advised to bring her blood pressure machine to the clinic for comparison with clinic readings. She should continue taking amlodipine 5 mg daily and consider lifestyle modifications to manage her hypertension, including weight management and regular exercise. For Heard's neuroma, the patient is advised to continue wearing special sneakers with insoles and avoid activities that exacerbate the pain, such as treadmill walking. 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 Regarding kidney stones, the patient should maintain adequate hydration with 64 ounces of water daily and continue consuming lemon water to prevent recurrence. follow up with her urologist as scheduled. The patient is advised to continue taking multivitamins to address vitamin D deficiency and follow up on her bone density scan as scheduled. Up-to-date with all her vaccinations She is up-to-date with her cervical cancer screening, breast cancer screening and colon cancer screening . Patient was informed and verbally consented to the use of an ambient scribe for clinic note documentation during this visit. Orders: Orders Alanine Aminotransferase 05/28/25 E66.9 - Obesity, unspecified, E78.5 - Hyperlipidemia, unspecified, I10 - Essential (primary) hypertension, Z00.01 - Encounter for general adult medical examination with abnormal findings Basic Metabolic Panel Fasting 05/28/25 E66.9 - Obesity, unspecified, E78.5 - Hyperlipidemia, unspecified, I10 - Essential (primary) hypertension, Z00.01 - Encounter for general adult medical examination with abnormal findings Vitamin D 25-OH Total 05/28/25 E66.9 - Obesity, unspecified, E78.5 - Hyperlipidemia, unspecified, I10 - Essential (primary) hypertension, Z00.01 - Encounter for general adult medical examination with abnormal findings Lipid Panel 05/28/25 E66.9 - Obesity, unspecified, E78.5 - Hyperlipidemia, unspecified, I10 - Essential (primary) hypertension, Z00.01 - Encounter for general adult medical examination with abnormal findings Aspartate Amino Transferase 05/28/25 E66.9 - Obesity, unspecified, E78.5 - Hyperlipidemia, unspecified, I10 - Essential (primary) hypertension, Z00.01 - Encounter for general adult medical examination with abnormal findings
--- OUTSIDE RECORDS SUMMARY | 2025-05-28 11:48 | XMS_ITS | Clinical Summary ---
Author Organization [facility] Facility Address [address] [place] [address] Care Team Providers Care Paper Final Inspector Name Role Phone Lalo More MD Primary Care Provider [phone]- [phone] Allergies Active Allergy Reactions Criticality Noted Date [...] to complete this topic Insurance Care Teams Paper Final Inspector Relationship Specialty Start Date End Date Lalo More MD [address] [place] [address] [place] [address] PCP - General Internal Medicine 04/05/23
== END 2025-05-28 11:53 | disposition home or self-care (01) ==
LOC: HO.HMCC 10:58
PROVIDERS: PCP Internal Medicine; Visit Provider Internal Medicine
DX: Z00.01 Encounter for general adult medical examination with abnormal findings (principal); E78.5 Hyperlipidemia, unspecified; E66.9 Obesity, unspecified; Z68.34 Body mass index [BMI] 34.0-34.9, adult; I10 Essential (primary) hypertension; Z87.442 Personal history of urinary calculi

== ENCOUNTER → 2025-05-28 10:57 | Outpatient (BNVA) | payer BC, SELFPAY | PROVIDERS: PCP Internal Medicine; Visit Provider Internal Medicine | DX: Z00.01 Encounter for general adult medical examination with abnormal findings (principal); I10 Essential (primary) hypertension; E55.9 Vitamin D deficiency, unspecified; E78.5 Hyperlipidemia, unspecified; E66.9 Obesity, unspecified; Z87.442 Personal history of urinary calculi; Z68.34 Body mass index [BMI] 34.0-34.9, adult; Z79.899 Other long term (current) drug therapy | CPT/HCPCS: 96127 ==

== ENCOUNTER 2025-06-25 06:10 | Outpatient (REF) | payer BC, SELFPAY ==
--- OUTSIDE RECORDS SUMMARY | 2025-04-21 04:30 | XMS_ITS ---
Author Organization [facility] Address [address] [facility] [place] [address] Care Team Providers Care Public Transit Specialist Name Role Phone Argenis LAGUERRE, Annika Munson Primary Care Provider Un available Black, Miriam Unavailable [phone] Perica, Caroline Unavailable [phone] Allergies Allergen (clinical drug ingredient) Drug/Non Drug [...] Note-Appointment . . . Pt had a [facility] appointment today; Duration: . 05/09/2017 [...] No Encounters Encounter Location Date Provider Diagnosis [facility] [address] [facility] [place] [address] 04/21/2025 Caroline Rizo Plan Of Treatment Next Appt Details Provider Name:Miriam Garcia , 09/10/2025 09:30:00 AM, [address] [facility], [place], [address], Progress Notes * Linda CHRISTOPHER EDOB:1960 (65 yo F)Acc No.[id number]:04/21/2025 Progress Notes Patient: Linda BALBUENA Provider: Guerrero Rizo DPM :1960 A ge:65 Y S ex:Female Date:04/21/2025 Address:[address] [place] [address] , [facility] [place] Pcp:Nikolay Castañeda Subjective: * Chief Complaints: * [...] enies. C ardiovascular: Pacemaker d enies. 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 W PW d enies. C [...] 04/21/2025 Generated for Chica braga/Britta/Piedad on: 0 06/25/2025 06:14 AM EDT
--- OUTSIDE RECORDS SUMMARY | 2025-06-25 06:15 | XMS_ITS | Clinical Summary ---
Author Organization [facility] Facility Address [address] [place] [address] Care Team Providers Care Clinic Physician Name Role Phone Lalo More MD Primary Care Provider [phone]- [phone] Allergies Active Allergy Reactions Criticality Noted Date [...] to complete this topic Insurance Care Teams Clinic Physician Relationship Specialty Start Date End Date Lalo More MD [address] [place] [address] [place] [id number] PCP - General Internal Medicine 04/05/23
--- OUTSIDE RECORDS SUMMARY | 2025-06-25 06:15 | XMS_ITS | Patient Health Record ---
[facility] Address [address] [facility] [place] [address] Care Team Providers Care Client Support Coordinator Name Role Phone Argenis LAGUERRE, Annika Munson Primary Care Provider Un available Black, Miriam Unavailable [phone] Renzo Alegre Unavailable [phone] Caroline Rizo Unavailable [phone] Allergies Allergen (clinical drug ingredient) Drug/Non Drug Allergy documented on EMR Reaction Allergy Type Onset Date Status Bee Sting Unknown Allergy Active Results Component Value Reference Range Notes X ray : Foot, left 3V Reviewed date:03/02/2025 06:06:09 PM Interpretation:See Examination above Performing Lab: Notes/Report: See Examination above Reason For Referral No Information Medications Medication SIG (Take, Route, Frequency, Duration) Notes Start Date End Date Status amLODIPine Besylate 5 MG 1 tablet Orally Once a day Active Ciclopirox 8 % 1 application thin f ilm topically to nails Externally Once a day; Duration: 30 days Active Medrol 4 MG as directed Orally 06/06/2017 Unknown Night Splint AFO - L1930 as directed 06/06/2017 Unknown Diclofenac Sodium 50 MG 1 tablet as need ed Orally Twice a day; Duration: 14 days 03/02/2025 Active Work Note . . . Limited walking/standing due to foot pain until further notice 06/06/2017 Unknown Work Note . . . 06/11/2025 Active Work Note-Appointment . . . [facility]; Duration: . 05/09/2017 Unknown Immunizations Vaccine Route Administration Date Status Comme nts Influenza Unknown 06/29/2024 Administered Social History Tobacco Use: Social History Observation [...] Are you an other tobacco user? No AUDIT-C (Standard) Question Answer Notes Did you have a drink containing alcohol in the p ast year? No Points 0 Interpretation Negative Problems Problem Type SNOMED Code ICD Code Onset Dates Problem Status W/U Status Risk Notes Problem Metatarsalgia of left foot (581731518951443) Metatarsalgia, left foot (M77.42) Active confirmed Problem Onychomycosis (396212257) Onychomycosis (B35.1) Active confirmed Problem Heard's neuroma of left foot ([id number]) Heard's neuroma of left foot (G57.62) Active confirmed Vital Signs Blood pressure diastolic 90 mm Hg 06/11/2025 Height 5ft3in in 06/11/2025 Blood pressure systolic 132 mm Hg 06/11/2025 Weight 190 lbs 06/11/2025 BMI 33.65 kg/m2 06/11/2025 Procedures Procedure Date Ordered Date Performed Result Body Sit e 04168-DGVIHSF NAIL, 6 OR MORE 04/23/2025 N/A 30271-MZFATCG NAIL, 6 OR MORE 06/11/2025 N/A Encounters Encounter Location Date Provider Diagnosis [facility] [address] 03/02/2025 Miriam Black Onychomycosis B35.1 ; Metatarsalgia, left foot M77.42 ; Pain in right toe(s) M79.674 ; Pain in left toe(s) M79.675 ; Pain in left foot M79.672 ; Pain in left ankle and joints of left foot M25.572 ; Bursitis of intermetatarsal bursa of left foot M77.52 ; Heard's neuroma of left foot G57.62 and Foot neuroma D36.[address] [facility] [address] 04/23/2025 Miriam Black Onychomycosis B35.1 ; Metatarsalgia, left foot M77.42 ; Pain in right toe(s) M79.674 ; Pain in left toe(s) M79.675 ; Pain in left foot M79.672 ; Pain in left ankle and joints of left foot M25.572 ; Bursitis of intermetatarsal bursa of left foot M77.52 ; Heard's neuroma of left foot G57.62 and Foot neuroma D36.[address] [address] 06/11/2025 Miriam Black Onychomycosis B35.1 ; Metatarsalgia, left foot M77.42 ; Pain in right toe(s) M79.674 ; Pain in left toe(s) M79.675 ; Pain in left foot M79.672 ; Pain in left ankle and joints of left foot M25.572 ; Bursitis of intermetatarsal bursa of left foot M77.52 ; Heard's neuroma of left foot G57.62 and Foot neuroma D36.[address] [address] 2025 Caroline Rizo [address] [address] 04/23/2025 Miriam Garcia [address] [address] 04/23/2025 Miriam Black Assessments Encounter Date Diagnosis (ICD Code) Assessment Notes Treatment Notes Treatment Clinical Notes Section Notes 03/02/2025 Metatarsalgia, left foot (ICD-10 - M77.42) 03/02/2025 Onychomycosis (ICD-10 - B35.1) 04/23/2025 Metatarsalgia, left foot (ICD-10 - M77.42) 04/23/2025 Onychomycosis (ICD-10 - B35.1) 06/11/2025 Metatarsalgia, left foot (ICD-10 - M77.42) 06/11/2025 Onychomycosis (ICD-10 - B35.1) 06/11/2025 Pain in right toe(s) (ICD-10 - M79.674) 04/23/2025 Pain in right toe(s) (ICD-10 - M79.674) 03/02/2025 Pain in right toe(s) (ICD-10 - M79.674) 03/02/2025 Pain in left toe(s) (ICD-10 - M79.675) 04/23/2025 Pain in left toe(s) (ICD-10 - M79.675) 06/11/2025 Pain in left toe(s) (ICD-10 - M79.675) 04/23/2025 Pain in left foot (ICD-10 - M79.672) 06/11/2025 Pain in left foot (ICD-10 - M79.672) 03/02/2025 Pain in left foot (ICD-10 - M79.672) 04/23/2025 Pain in left ankle and joints of left foot (ICD-10 - M25.572) 03/02/2025 Pain in left ankle and joints of left foot (ICD-10 - M25.572) 06/11/2025 Pain in left ankle and joints of left foot (ICD-10 - M25.572) 06/11/2025 Bursitis of intermetatarsal bursa of left foot (ICD-10 - M77.52) 04/23/2025 Bursitis of intermetatarsal bursa of left foot (ICD-10 - M77.52) 03/02/2025 Bursitis of intermetatarsal bursa of left foot (ICD-10 - M77.52) 03/02/2025 Heard's neuroma of left foot (ICD-10 - G57.62) 04/23/2025 Heard's neuroma of left foot (ICD-10 - G57.62) 06/11/2025 Heard's neuroma of left foot (ICD-10 - G57.62) 06/11/2025 Foot neuroma (ICD-10 - D36.13) 04/23/2025 Foot neuroma (ICD-10 - D36.13) 03/02/2025 Foot neuroma (ICD-10 - D36.13) Plan Of Treatment Pending Test Test Name Order Date [id number] NAIL, 6 OR MORE 04/23/2025 [id number] NAIL, 6 OR MORE 06/11/2025 Next Appt Details Provider Name:Miriam Garcia , 09/10/2025 09:30:00 AM, [address] [place], [address], Insurance Providers Payer Name Payer Address Payer Phone Subscriber Number Group Number Insured Name Patient Relationship to Insured Coverage Start Date Coverage End Date [facility] [address] [place] [address] [id number] Linda Christopher Self - patient is the insured Medical (General) History Medical History History ICD Code High blood pressure Raynauds syndrome Measles Chicken pox Surgical History Surgery Date(Month/Year) kidney stones 04/2015 section 11/10/92, 03/19/95
[2025-06-25 10:56] LABS: Alanine Aminotransferase 31 U/L (0-31); Anion Gap 9 (12-20); Aspartate Amino Transferase 32 U/L (5-31); Blood Urea Nitrogen 10 mg/dL (9-16); Calcium 9.3 mg/dL (8.4-10.2); Carbon Dioxide 30 mmol/L (22-29); Chloride 104 mmol/L (96-108); Cholesterol 191 mg/dL (<200); Estimated Glomerular Filt Rate > 60; HDL Cholesterol 43 mg/dL (>40); Potassium 3.8 mmol/L (3.3-5.1); Sodium 139 mmol/L (135-145); Triglycerides 148 mg/dL (<150)
== END 2025-06-25 06:11 | disposition home or self-care (01) ==
LOC: HO.HMGCLDS 06:10
PROVIDERS: PCP Internal Medicine; Visit Provider Internal Medicine
DX: Z00.01 Encounter for general adult medical examination with abnormal findings (principal); E78.5 Hyperlipidemia, unspecified; I10 Essential (primary) hypertension; E66.9 Obesity, unspecified; Z13.21 Encounter for screening for nutritional disorder
CPT/HCPCS: 36415; 80048; 80061; 82306; 84450; 84460

== ENCOUNTER 2025-07-13 07:30 | Outpatient (REF) | payer BC, SELFPAY ==
[2025-07-13 12:43] LABS: Creatinine, mg/dL 26.09
[2025-07-13 12:45] LABS: Total Volume 24 Hour Urine 3750 mL
== END 2025-07-13 07:31 | disposition home or self-care (01) ==
LOC: HO.HMGCLNP 07:30
PROVIDERS: PCP Internal Medicine; Visit Provider Internal Medicine Hypertension Specialist
DX: N20.0 Calculus of kidney (principal); Z87.442 Personal history of urinary calculi
CPT/HCPCS: 82570

== ENCOUNTER 2025-07-23 09:26 | Outpatient (AMB) | payer BC, SELFPAY ==
[2025-07-23 09:27] VITALS: BP 162/92; PULSE 95; O2SAT 98; BMI 35.1
--- NOTE | 2025-07-23 09:27 | HO.NEPHOV_ITS ---
Vital Signs 07/23/25 09:27 Height 5 ft 3 in Weight 198 lb BMI 35.1 BP 162/92 H Blood Pressure Location Lt brachial Position Sitting Pulse 95 Pulse Source Pulse Oximeter Pulse Oximetry (%) 98 Oxygen Delivery Method Room Air Intake Visit Reasons: Bilateral kidney stones, conf. 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 She has been monitoring her blood pressure at home. Overall blood pressure seems to be well controlled. Recently she developed severe left flank pain which lasted for few days. She visited the ER and ultrasound showed a left ureteral calculus with hydronephrosis. She has been referred to Urology. Her next appointment is on September 12. At present she does not have any pain No urinary symptoms She has lost 6-10 lb 10/30/2023. Overall the blood is doing well. Few weeks ago showed severe right-sided pain. The pain suddenly dropped from 100 down to 0. Since then she has had no issues. She underwent a renal ultrasonogram showed bilateral brain nephrolithiasis. No obstruction was noted. She is scheduled for a follow-up CT scan. 02/07/2024. Several weeks ago she had left renal colic and she felt that she had passed a stone. Pain subsided. About 10 days ago she developed left-sided flank pain and suprapubic pain. She was seen in the urgent care. She was given IV antibiotics apparently there was no UTI. She continues to have difficulty urination. She was given a short course of prednisone which relieved her symptoms seemed temporarily. She had been monitoring blood pressure at home home blood pressure readings have been acceptable. She stopped spironolactone because of bone asked her to stop doing 24 urine collection. 03/06/2024. CT scan showed left ureteral stone with mild hydroureter; still has some pain and she has been taking ibuprofen p.o. She has started a new diet and lost about 4-6 lb 07/24/2024. Steffany recently passed a kidney stone. No further loin pain no urinary symptoms. She is on a special diet and trying to lose weight. Home blood pressure readings are excellent. She underwent 24 urine collection. Mild hypercalciuria and high uric acid excretion is also elevated. Others are pending Volume was 3500 cc 07/23/2025 - The patient is a 65-year-old female presenting with nephrolithiasis and hypertension with white coat effect. - Nephrolithiasis: Recent imaging shows no stones; follow-up scheduled next year. - Hypertension: On 5 mg amlodipine; blood pressure fluctuates, monitored at home. - Renal cyst: Monitored by urology, no intervention needed. - Heard's neuroma: Pain limited mobility, now improving with alternative exercises. Patient was informed and verbally consented to the use of an ambient scribe for clinic note documentation during this visit. 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 Lungs entry equal no rales. Heart S1-S2 heard no gallop or rub. Abdomen soft nontender. Neuro alert awake oriented. No asterixis. Extremities no edema. Results Reviewed Nephrology Results: Sodium, (135-145) 139 mmol/L 06/25/25 Potassium, (3.3-5.1) 3.8 mmol/L 06/25/25 Chloride, (96-108) 104 mmol/L 06/25/25 Carbon Dioxide, (22-29) 30 mmol/L H 06/25/25 BUN, (9-16) 10 mg/dL 06/25/25 Creatinine, (0.5-1.4) 0.74 mg/dL 06/25/25 Calcium, (8.4-10.2) 9.3 mg/dL Δ 06/25/25 Renal US 04/30/24 Assessment & Plan Assessment & Plan (1) History of nephrolithiasis: Comment: left - 2012 and 2022 Code(s): Z87.442 - Personal history of urinary calculi Category: Medical (2) Essential hypertension: Code(s): I10 - Essential (primary) hypertension Category: Medical (3) Bilateral kidney stones: Code(s): N20.0 - Calculus of kidney Category: Medical Plan: . Rusty Jeter has hypertension. Overall blood pressure seems well controlled. She should stay on a low-sodium diet. Encouraged to continue monitoring of blood pressure at home. With further weight loss we might be able to taper and discontinue the antihypertensive. Discontinue spironolactone 12.5 mg Left ureteral calculus with hydronephrosis. Repeat ultrasonogram showed bilateral renal stones without hydronephrosis. CT scan showed left ureteral calculus with mild hydro. She passed the stone and 05/17/2024. 24 hour urine collection revealed a urine output of 3300 cc which is excellent. Sodium excretion is acceptable. Oxalate excretion was acceptable. Calcium excretion is elevated encouraged her to decrease calcium supplementation. Uric acid excretions were also elevated encouraged her to cut back on red meat. Continue to stay on a low-sodium diet Keep p.o. fluid intake to maintain a urine output of at least 2 L per 24 hours 07/23/25 1. Nephrolithiasis - Annual imaging; no stones currently. 2. Hypertension With White Coat Effect - Continue amlodipine; home BP monitoring. Low-salt diet Discussed weight loss 3. Renal Cyst - Monitor by urology; no intervention needed. 4. Heard's Neuroma - Alternative exercises recommended; consider surgery if needed. Avoid NSAIDs Patient Instructions - Continue taking amlodipine as prescribed. - Monitor blood pressure at home regularly. - Engage in alternative exercises like swimming or cycling to avoid pressure on the foot. - Follow up with urology for renal cyst monitoring. - Schedule annual imaging for kidney stones. Orders: Orders Basic Metabolic Panel 1 Year I10 - Essential (primary) hypertension, Z87.442 - Personal history of urinary calculi Coding Level of Care Code Est Pt Level 4 (06966) Diagnoses History of nephrolithiasis Z87.442 Essential hypertension I10 Bilateral kidney stones N20.0
== END 2025-07-23 09:49 | disposition home or self-care (01) ==
LOC: HO.HKA 09:26
PROVIDERS: PCP Internal Medicine; Visit Provider Internal Medicine Hypertension Specialist
DX: Z87.442 Personal history of urinary calculi (principal); I10 Essential (primary) hypertension; N20.0 Calculus of kidney
CPT/HCPCS: 99214